=== PATIENT | female | born 1945 | race Caucasian/White ===

== ENCOUNTER 2017-06-16 10:00 | Inpatient (IN) ==
[2017-06-16 13:02] LABS: Appearance,Urine CLEAR; Bilirubin,Urine NEG (NEG); Color,Urine YELLOW; Glucose,Urine (UA) NEGATIVE (NEG); Leukocyte Esterase,Urine NEG /uL (NEG); Protein,Urine NEG (NEG); Specific Gravity,Urine 1.013 (1.000-1.035); Urine Blood 0.03 mg/dL (<0.03); Urobilinogen,Urine NEG (NEG)
[2017-06-16 13:47] LABS: Basophils # (Auto) 0 K/mcL (0.0-0.3); Basophils % (Auto) 0.4 % (0.0-2.0); Eosinophils # (Auto) 0.3 K/mcL (0.0-0.7); Eosinophils % (Auto) 3.3 % (0.0-7.0); Granulocytes % (Auto) 63.2 % (38.0-78.0); Lymphocytes # (Auto) 1.9 K/mcL (1.5-4.8); Lymphocytes % (Auto) 24.9 % (15.5-49.0); Mean Cell Volume 88.7 fL (80.0-100.0); Mean Corpuscular HGB Conc 34.2 g/dL (31.0-36.0); Mean Corpuscular Hemoglobin 30.3 pg (26.0-34.0); Monocytes # (Auto) 0.6 K/mcL (0.1-0.9); Monocytes % (Auto) 8.2 % (1.0-12.0); Platelet Count 390 K/mcL (140-440); RBC 4.56 M/mcL (4.00-5.20)
[2017-06-16 14:02] LABS: Blood Urea Nitrogen 16 mg/dl (8-23)
[2017-06-16 14:53] LABS: Bacteria,Urine 0 /hpf (0); Urine RBC 0 /hpf (0-1); Urine Squamous Epithelial Cell 0 /hpf (0-4); Urine WBC 0 /hpf (0-4)
[2017-06-22] MEDS ORDERED: PREGABALIN 75 MG CAPSULE PO SCH (06:00)
[2017-06-22] MEDS ORDERED: oxyCODONE 10 MG TAB.ER.12H PO SCH (06:00)
[2017-06-22] MEDS ORDERED: KETOROLAC 30 MG, ROPIVACAINE HCL/PF 49.5 ML, EPINEPHrine 0.5 MG, 0.9 % SODIUM CHLORIDE ... IJ ONE (07:00)
[2017-06-22] MEDS ORDERED: CLINDAMYCIN 600 MG in DEXTROSE 5% IN WATER 50 ML IV SCH (09:00)
[2017-06-22] MEDS: CELECOXIB 200 MG CAPSULE PO SCH (10:49)
[2017-06-22] MEDS ORDERED: MIDAZOLAM 5 MG/5 ML VIAL ONE (12:57)
[2017-06-22] MEDS ORDERED: PROPOFOL 200 MG/20 ML VIAL IV ONE (12:57)
[2017-06-22] MEDS ORDERED: DEXAMETHASONE 10 MG/ML VIAL ONE (12:57)
[2017-06-22] MEDS ORDERED: LIDOCAINE HCL/PF 100 MG/5 ML SYRINGE IV ONE (12:57)
[2017-06-22] MEDS ORDERED: PHENYLEPHRINE 10 MG/ML VIAL ONE (12:57)
[2017-06-22] MEDS ORDERED: GLYCOPYRROLATE 0.2 MG/ML VIAL IV ONE (12:57)
[2017-06-22] MEDS ORDERED: ONDANSETRON 4 MG/2 ML VIAL ONE (12:57)
[2017-06-22] MEDS ORDERED: ONDANSETRON 4 MG/2 ML VIAL IV PRN ×2 (14:04→15:02)
[2017-06-22] MEDS ORDERED: diphenhydrAMINE 50 MG/ML VIAL IV PRN (14:04)
[2017-06-22] MEDS ORDERED: ATROPINE SULFATE 0.4 MG/ML VIAL IV PRN (14:04)
[2017-06-22] MEDS ORDERED: FLUMAZENIL 0.1 MG/ML ML IV PRN (14:04)
[2017-06-22] MEDS ORDERED: ePHEDrine 50 MG/ML AMPUL IV PRN (14:04)
[2017-06-22] MEDS ORDERED: NALOXONE HCL 0.4 MG/ML VIAL IV PRN (14:04)
[2017-06-22] MEDS ORDERED: IPRATROPIUM/ALBUTEROL 3 ML AMPUL.NEB NEB PRN (14:04)
[2017-06-22] MEDS ORDERED: fentaNYL 100 MCG/2 ML VIAL IV PRN (14:04)
[2017-06-22] MEDS ORDERED: MEPERIDINE 25 MG/ML SYRINGE IV PRN (14:04)
[2017-06-22] MEDS ORDERED: METHOCARBAMOL 1,000 MG/10 ML VIAL IV PRN (14:04)
[2017-06-22] MEDS ORDERED: PROMETHAZINE 25 MG/ML VIAL IV PRN (14:04)
[2017-06-22] MEDS ORDERED: METOPROLOL TARTRATE 5 MG/5 ML VIAL IV PRN (14:04)
[2017-06-22] MEDS ORDERED: HYDROmorphone 2 MG/ML VIAL IV PRN (14:04)
[2017-06-22] MEDS ORDERED: LACTATED RINGERS 1,000 ML IV SCH (14:15)
[2017-06-22] MEDS ORDERED: ACETAMINOPHEN 1,000 MG/100 ML BOTTLE IV SCH (14:15)
[2017-06-22] MEDS ORDERED: GENTAMICIN SULFATE 800 MG/20 ML VIAL IR ONE (14:50)
[2017-06-22] MEDS ORDERED: HYDROcodone/APAP 10/325MG TABLET PO PRN (15:02)
[2017-06-22] MEDS ORDERED: ACETAMINOPHEN 325 MG TABLET PO PRN (15:02)
[2017-06-22] MEDS ORDERED: METHOCARBAMOL 750 MG TABLET PO PRN (15:02)
[2017-06-22] MEDS ORDERED: ONDANSETRON ODT 4 MG TABLET SL PRN (15:02)
[2017-06-22] MEDS ORDERED: FLEETS ADULT ENEMA PR PRN (15:02)
[2017-06-22] MEDS ORDERED: POLYETHYLENE GLYCOL 3350 17 GM PACKET PO PRN (15:02)
[2017-06-22] MEDS ORDERED: BENZOCAINE/MENTHOL 1 LOZENGE PO PRN (15:02)
[2017-06-22] MEDS ORDERED: TRANEXAMIC ACID 1,000 MG/10 ML VIAL IV ONE (15:02)
[2017-06-22] MEDS ORDERED: BISACODYL 10 MG SUPP.RECT PR PRN (15:02)
[2017-06-22] MEDS ORDERED: MAGNESIUM HYDROXIDE 30 ML ORAL.SUSP PO PRN (15:02)
--- NOTE | 2017-06-22 15:02 | Brief Operative Note ---
Date of procedure: 06/22/17 Pre-op diagnosis: right knee oa Post-op diagnosis: same Procedure: right total knee arthroplasty Grafts/Implants: Yes Anesthesia: spinal Complications: none Surgeon: Daniel Johnson Technician Support Association: Anuradha Levy Estimated blood loss (cc): 150 Tourniquet Time (Minutes): 83 Specimens Removed/Pathology: none sent Condition: stable Disposition: PACU
[2017-06-22] MEDS ORDERED: ACETAMINOPHEN 500 MG TABLET PO PRN (15:05)
--- NOTE | 2017-06-22 15:34 | Operative Note ---
DATE OF OPERATION: 06/22/2017 PREOPERATIVE DIAGNOSIS: Degenerative joint disease, right knee. POSTOPERATIVE DIAGNOSIS: Degenerative joint disease, right knee. PROCEDURE: Right total knee arthroplasty. SURGEON: Baltazar Johnson M.D. AIR SUPPORT CONTROL OFFICER SURGEON: Anuradha Levy PA-C. ANESTHESIA: Spinal with LMA assist. ESTIMATED BLOOD LOSS: 150 mL. COMPLICATIONS: None noted. SPECIMENS REMOVED: None. DRAINS: None. TOURNIQUET TIME: 123 minutes at 300 mmHg. IMPLANTS: DePuy Attune Revision cemented stem, 14 x 50; DePuy Attune femoral posterior stabilized, size 7 right, cemented; DePuy Attune tibial insert fixed bearing posterior stabilized, size 7, 6 mm AOX; DePuy Attune Revision tibial base fixed bearing, size 5 cemented; DePuy Attune patella medialized dome, 35 mm cemented AOX. INDICATIONS: The patient has had a long-standing history of worsening pain in the knee that has failed conservative treatment. Radiographs have confirmed advanced degenerative joint disease. After a long discussion about treatment options, the patient elected to proceed with a knee arthroplasty. The risks and benefits were discussed with the patient in detail including, but not limited to, the risks of anesthesia, problems with the heart or lungs related to anesthesia, infection, compromise or injury to the nerves and blood vessels, deep venous thrombosis, pulmonary embolism, pneumonia, continued pain after surgery, worsening pain or symptoms after surgery, swelling, loss of motion, instability, leg length discrepancy, and need for repeat surgery. DESCRIPTION OF PROCEDURE: The patient was seen in the pre-anesthesia waiting room where all questions were answered and the correct side and site were identified and marked. The patient was transferred to the operating room and administered the anesthetic and given pre-operative antibiotics. A time-out was then called. The extremity was prepped and draped, exsanguinated, and the tourniquet was inflated to 300 mmHg. A midline skin incision was then made with a standard medial parapatellar arthrotomy. Debridement of the menisci, ACL, and PCL was performed followed by balancing releases in the medial lateral plane. We then established intramedullary access to both the femur and tibia in a standard fashion. The femoral guide velia was initially placed with the distal femoral guide, pinned into place, and the distal femoral cut was performed and checked with a flat plate. We then turned our attention to the tibia. The intramedullary guide was placed with the proximal tibial cutting block. The block was appropriately positioned off the affected side, varus and valgus was checked with the extra-medullary guide, and the block was pinned into place. The proximal tibial cut was performed and the tibia was prepared for the tibial implant with appropriate rotation. We used a revision baseplate due to the significant wear along the medial side. Once the tibial cut was performed, there was only about 2-3 mm in the far posterior lateral corner, so I did not feel that we need to augment. I did place a stem, and we drilled out the sclerotic portion in the posterior medial tibial plateau. The tibia, femur, and posterior compartment were debrided of osteophytes, loose bodies, and meniscal fragments We then used the gap balancing technique to balance extension with the first two cuts and good balancing was obtained with a 10 millimeter gap block. We turned our attention back to the femur and used the referencing block and implant to size appropriately. Using the gap balancing technique for the flexion space we set our rotation of the femur off the tibial cut. Anesthesia gave the patient 1 gram of Tranexamic Acid via an intravenous route. We placed the 4 in 1 cutting block and made anterior, posterior, and chamfer cuts. Box plasty cuts were then made in a standard fashion for the posterior stabilized prosthesis. We then completed osteophyte release and posterior capsule release from the posterior compartment. Trials were placed and we chose the polyethylene insert thickness that provided the best stability in all planes. With the trials in place, we did a measured resection for a resurfacing patella. We sized the patella and placed the patella trial and performed a lateral facetectomy with the saw and rongeur. Good tracking was obtained. We removed all trials, irrigated and dried all cut surfaces. We cemented the components into place including tibia, femur and patella. We placed a trial liner and held the knee in full extension with the patella compressed while the cement cured. We then removed all excess cement and placed the final polyethylene tibiofemoral component. Irrigation with 3 liters of antibiotic saline was then performed using jet-lavage. We let the tourniquet down and coagulated bleeding vessels. We injected a 100 cubic centimeter volume including Ropivacaine 49.25 cubic centimeters at 5 milligrams per cubic centimeter, Ketorolac 30 milligrams, and Epinephrine 0.5 milligrams into 100 cubic centimeters volume of normal saline. We closed the retinaculum with #2 Stratafix and 0 Vicryl. We closed the subcutaneous tissue and skin in layers out to Dermabond in the skin. A sterile pressure dressing was applied. All needle and sponge counts were correct. The patient was transferred to the recovery room in stable condition. [email or web address]:soy Job ID: [id number] Doc ID: [id number] Baltazar Johnson MD
--- NOTE | 2017-06-22 16:11 | XRay Report ---
CLINICAL INFORMATION: Reason for Exam:Post-Op Total Knee COMPARISON: None. FINDINGS: Total knee prostheses is anatomically aligned. No osseous abnormality. Periarticular gas soft tissue swelling seen IMPRESSION: Negative Interpreted and Authenticated by: Daniel Vera 06/22/17
[2017-06-22] MEDS: 0.9 % SODIUM CHLORIDE 1,000 ML IV SCH ×2 (16:43→21:59)
[2017-06-22] MEDS: KETOROLAC 30 MG/ML VIAL IV SCH ×2 (17:33→23:36)
[2017-06-22] MEDS: CLINDAMYCIN 600 MG in DEXTROSE 5% IN WATER 50 ML IV SCH (20:10)
[2017-06-22] MEDS: ASPIRIN 325 MG ENTERIC COATED TABLET PO SCH (20:13)
[2017-06-22] MEDS: DOCUSATE SODIUM 100 MG CAPSULE PO SCH (20:13)
[2017-06-22] MEDS: 0.9 % SODIUM CHLORIDE 10 ML SYRINGE IV SCH (20:17)
[2017-06-22] MEDS ORDERED: SENNOSIDES 1 TABLET PO SCH (21:00)
[2017-06-22] MEDS ORDERED: VERAPAMIL 120 MG TAB.XL.24H PO SCH (21:00)
[2017-06-23] MEDS: 0.9 % SODIUM CHLORIDE 10 ML SYRINGE IV SCH (05:07)
[2017-06-23] MEDS: CLINDAMYCIN 600 MG in DEXTROSE 5% IN WATER 50 ML IV SCH (05:07)
[2017-06-23] MEDS: KETOROLAC 30 MG/ML VIAL IV SCH (05:51)
[2017-06-23] MEDS ORDERED: PANTOPRAZOLE 40 MG TABLET PO SCH (07:30)
--- NOTE | 2017-06-23 07:39 | Orthopedic Progress Note ---
Subjective Patient information: Note initiated : 06/23/17 at 7:37 am Service Date, if different from initiated Date: [] Patient: Denise Hairston 72 y/o F admitted on 06/22/17 for Right Total Knee Arthroplasty. Chief Complaint: [] Interval history: doing well no complaints Objective Vital signs: Vital Signs Temp Pulse Resp BP Pulse Ox 06/23/17 03:46 98.6 F 86 12 103/65 95 06/23/17 00:00 98.7 F 90 12 110/72 95 06/22/17 19:04 98.2 F 76 12 124/78 99 06/22/17 18:49 87 146/89 99 06/22/17 18:35 86 150/87 99 06/22/17 18:19 72 124/79 99 06/22/17 18:04 77 133/82 98 06/22/17 17:49 81 143/88 98 06/22/17 17:34 130/83 100 06/22/17 17:19 130/84 98 06/22/17 17:04 139/87 99 06/22/17 16:49 152/92 99 06/22/17 16:34 153/93 99 06/22/17 16:20 83 15 150/98 06/22/17 16:14 83 15 132/80 98 06/22/17 15:50 80 14 152/82 98 06/22/17 15:45 82 17 129/84 98 06/22/17 15:40 80 15 129/84 99 06/22/17 15:35 82 14 129/73 99 06/22/17 15:30 79 14 131/77 99 06/22/17 15:25 83 15 134/78 99 06/22/17 15:20 97.0 F 85 16 117/66 99 06/22/17 10:46 98.5 F 16 155/92 96 Intake and Output 06/22/17 06/23/17 06/23/17 21:59 05:59 13:59 Intake Total 1953 360 / 360 Output Total 100 / 100 550 / 550 250 / 250 Balance 1853 1502 / 1502 110 / 110 Intake: IV 1953 902 / 902 Sodium Chloride 0.9% 1,000 ml @ 848 / 848 125 mls/hr IV .Q8H [facility]KO Rx#: [id number] Cleocin 600 mg In Dextrose 5% 54 / 54 54 / 54 in Water 50 ml @ 100 mls/hr IV Q8H [facility]KO Rx#:[id number] Lactated Ringers 1,000 ml @ 20 1800 / 1800 mls/hr IV .Q24H [facility]KO Rx#: [id number] Oral 1150 / 1150 360 / 360 Output: Void Amount 550 / 550 250 / 250 Estimated Blood Loss 100 / 100 Other: Meal jello Percent of Meal Consumed 100% Feeding Ability Independent Weight 146 lb 8 oz Intake & Output: Intake & Output 06/22/17 06/23/17 06/23/17 21:59 05:59 13:59 Intake Total 1953 360 / 360 Output Total 100 / 100 550 / 550 250 / 250 Balance 1853 / 1853 1502 / 1502 110 / 110 Weight 146 lb 8 oz Intake: IV 1953 902 / 902 Sodium Chloride 0.9% 1,000 ml @ 848 / 848 125 mls/hr IV .Q8H MIKO Rx#: [id number] Cleocin 600 mg In Dextrose 5% 54 / 54 54 / 54 in Water 50 ml @ 100 mls/hr IV Q8H [facility]KO Rx#:[id number] Lactated Ringers 1,000 ml @ 20 1800 / 1800 mls/hr IV .Q24H [facility]KO Rx#: [id number] Oral 1150 / 1150 360 / 360 Output: Void Amount 550 / 550 250 / 250 Estimated Blood Loss 100 / 100 Other: Meal jello Percent of Meal Consumed 100% Feeding Ability Independent Incision: Yes healing Incision clean and dry: Yes Dressing: Yes clean, Yes dry, Yes intact Weight bearing status: full Neurological exam IM: Yes alert, Yes normal gait, Yes oriented X3, Yes motor sensory intact, Yes neurovascular intact Extremities exam IM: No calf tenderness, Yes Foot pink and warm, Yes neurovascular intact - Labs CBC & BMP: 06/23/17 04:00 06/16/17 10:25 Labs: Orthopedic Labs 06/16/17 10:25 PT 13.6 INR 1.0 06/23/17 06/16/17 04:00 10:25 Hgb 9.1 L 13.8 Hct 27.0 L 40.5 Assessment and Plan (1) Knee osteoarthritis pod 1 s/p tka wbat pain control dvt prophylaxis d/c planning Status: Acute
--- NOTE | 2017-06-23 07:40 | Discharge Summary ---
Ortho Discharge - TKA - Patient Instructions Diet: Regular Diet Activity: activity as tolerated, weight bearing as tolerated Total Knee Protocol: For Total Knee: Start ROM FADUMO with stationary bike or rocking chair. Work on gaining full extension of knee. Posterior dislocation precautions provided. Hip abductor strengthening and gait training instructions provided. Apply Cryocuff as instructed. Dressing Care: May shower in 2 days Patient Education: Total Knee Replacement, Director Trust (GEN) - Problem Maintenance (1) Knee osteoarthritis Status: Acute - Follow Up Plan Disposition: Home, Self-Care Prognosis: Good Rehab Potential: Good I certify that the patient requires SNF services: No Overall status at discharge: patient is progressing back to baseline
[2017-06-23] MEDS: DOCUSATE SODIUM 100 MG CAPSULE PO SCH (08:54)
[2017-06-23] MEDS: ASPIRIN 325 MG ENTERIC COATED TABLET PO SCH (08:55)
[2017-06-23] MEDS ORDERED: BISOPROLOL 5 MG TABLET PO SCH (09:00)
[2017-06-23] MEDS ORDERED: HYDROCHLOROTHIAZIDE 25 MG TABLET PO SCH (09:00)
[2017-06-23] MEDS ORDERED: CETIRIZINE 10 MG TABLET PO SCH (09:00)
[2017-06-23] MEDS ORDERED: BISOPROLOL FUMARATE PO SCH (09:00)
[2017-06-23] MEDS ORDERED: HCTZ PO SCH (09:00)
[2017-06-23] MEDS ORDERED: [UNRECOGNIZED DRUG - OTHER] PO SCH (09:00)
== END 2017-06-23 09:50 | disposition home or self-care (01) | DRG 470 ==
LOC: ICU 06-22 09:25 → EDSTATUS 06-22 10:30
PROVIDERS: ADMIT Orthopaedic Surgery Sports Medicine; ATTEND Orthopaedic Surgery Sports Medicine

== ENCOUNTER 2019-02-21 07:51 | Inpatient (IN) ==
[2019-02-15 18:09] LABS: Appearance,Urine CLEAR; Bacteria,Urine 0 /hpf (0); Bilirubin,Urine NEG (NEG); Color,Urine STRAW; Culture Indicated,Urine NO; Glucose,Urine (UA) NEGATIVE (NEG); Ketones,Urine NEG (NEG); Leukocyte Esterase,Urine NEG /uL (NEG); Mucus,Urine FEW /hpf (0); Nitrate,Urine NEG (NEG); Protein,Urine NEG (NEG); Specific Gravity,Urine 1.016 (1.000-1.035); Urine Blood 0.2 mg/dL (<0.03); Urine RBC 5 /hpf (0-1); Urine Squamous Epithelial Cell < 1 /hpf (0-4); Urine Transitional Epi Cells < 1 /hpf (0-2); Urine WBC 0 /hpf (0-4); Urobilinogen,Urine NEG (NEG)
[2019-02-15 19:41] LABS: Basophils # (Auto) 0 K/mcL (0.0-0.3); Basophils % (Auto) 0.5 % (0.0-2.0); Eosinophils # (Auto) 0.1 K/mcL (0.0-0.7); Eosinophils % (Auto) 1.4 % (0.0-7.0); Hematocrit 40.6 % (36.0-48.0); Hemoglobin 13.2 g/dL (12.0-15.0); Lymphocytes # (Auto) 1.5 K/mcL (1.5-4.8); Lymphocytes % (Auto) 26.6 % (15.5-49.0); Mean Cell Volume 90.1 fL (80.0-100.0); Mean Corpuscular HGB Conc 32.5 g/dL (31.0-36.0); Mean Platelet Volume 7.6 fL (7.4-10.4); Monocytes # (Auto) 0.4 K/mcL (0.1-0.9); Monocytes % (Auto) 7.5 % (1.0-12.0); Platelet Count 376 K/mcL (140-440); RBC 4.51 M/mcL (4.00-5.20); Red Cell Distribution Width 13.9 % (11.5-14.5); WBC 5.6 K/mcL (4.5-11.0)
[2019-02-15 19:47] LABS: Prothrombin Time 13.2 sec (11.9-14.5)
[2019-02-15 19:52] LABS: Blood Urea Nitrogen 23 mg/dl (8-23); Calcium 9.4 mg/dl (8.6-10.4); Carbon Dioxide 28 mmol/L (22-30); Chloride 103 mmol/L (96-108); Glomerular Filtration Rate 85; Glucose 98 mg/dL (70-105)
[~2019-02-21 07:51] MED LIST: 0.9 % SODIUM CHLORIDE 9 ML, KETOROLAC 30 MG, ROPIVACAINE HCL/PF 49.5 ML, EPINEPHrine 0.... IJ SCH; CELECOXIB 200 MG CAPSULE PO SCH; IPRATROPIUM/ALBUTEROL 3 ML AMPUL.NEB NEB PRN; PREGABALIN 75 MG CAPSULE PO SCH; SCOPOLAMINE 1 PATCH PATCH TOPICAL PRN; VANCOMYCIN 1,000 MG in 0.9 % SODIUM CHLORIDE 250 ML IV SCH; oxyCODONE 10 MG TAB.ER.12H PO SCH
[2019-02-21] MEDS ORDERED: ONDANSETRON 4 MG/2 ML VIAL IV ONE (09:20)
[2019-02-21] MEDS ORDERED: LIDOCAINE HCL/PF 100 MG/5 ML SYRINGE IV ONE (09:20)
[2019-02-21] MEDS ORDERED: PHENYLEPHRINE 10 MG/ML VIAL IV ONE (09:20)
[2019-02-21] MEDS ORDERED: DEXAMETHASONE 10 MG/ML VIAL IV ONE (09:20)
[2019-02-21] MEDS ORDERED: PROPOFOL 200 MG/20 ML VIAL IV ONE (09:20)
[2019-02-21] MEDS ORDERED: GLYCOPYRROLATE 0.2 MG/ML VIAL IV ONE (09:20)
[2019-02-21] MEDS ORDERED: ROPIVACAINE HCL/PF 20 ML VIAL IJ ONE (09:20)
[2019-02-21] MEDS ORDERED: TRANEXAMIC ACID 1,000 MG/10 ML VIAL IV ONE (09:20)
[2019-02-21] MEDS ORDERED: ePHEDrine 50 MG/ML AMPUL IV ONE (09:20)
[2019-02-21] MEDS ORDERED: KETAMINE 100 MG/ML ML IV ONE (09:20)
[2019-02-21] MEDS ORDERED: GENTAMICIN SULFATE 800 MG/20 ML VIAL IR ONE (09:50)
[2019-02-21] MEDS ORDERED: PROMETHAZINE 25 MG/ML VIAL IV PRN (10:16)
[2019-02-21] MEDS ORDERED: IPRATROPIUM/ALBUTEROL 3 ML AMPUL.NEB NEB PRN (10:16)
[2019-02-21] MEDS ORDERED: MEPERIDINE 25 MG/ML SYRINGE IV PRN (10:16)
[2019-02-21] MEDS ORDERED: NALOXONE HCL 0.4 MG/ML VIAL IV PRN (10:16)
[2019-02-21] MEDS ORDERED: diphenhydrAMINE 50 MG/ML VIAL IV PRN (10:16)
[2019-02-21] MEDS ORDERED: LACTATED RINGERS 250 ML IV PRN (10:16)
[2019-02-21] MEDS ORDERED: ACETAMINOPHEN 850 MG/85 ML BOTTLE IV ONE (10:16)
[2019-02-21] MEDS ORDERED: ONDANSETRON 4 MG/2 ML VIAL IV PRN ×2 (10:16→10:56)
[2019-02-21] MEDS ORDERED: fentaNYL 100 MCG/2 ML VIAL IV PRN (10:16)
[2019-02-21] MEDS ORDERED: LACTATED RINGERS 1,000 ML IV SCH (10:30)
--- NOTE | 2019-02-21 10:55 | Brief Operative Note ---
Date of procedure: 02/21/19 Pre-op diagnosis: left knee osteoarthritis Post-op diagnosis: same Procedure: left total knee arthroplasty Grafts/Implants: Yes Anesthesia: spinal Complications: none Surgeon: Daniel Johnson Mirror Painter: Anuradha Levy Estimated blood loss (cc): 150 Tourniquet Time (Minutes): 60 Specimens Removed/Pathology: none sent Condition: stable Disposition: PACU
[2019-02-21] MEDS ORDERED: ONDANSETRON 4 MG ODT TABLET SL PRN (10:56)
[2019-02-21] MEDS ORDERED: BISACODYL 10 MG SUPP.RECT PR PRN (10:56)
[2019-02-21] MEDS ORDERED: FLEETS ADULT ENEMA PR PRN (10:56)
[2019-02-21] MEDS ORDERED: MAGNESIUM HYDROXIDE 30 ML ORAL.SUSP PO PRN (10:56)
[2019-02-21] MEDS ORDERED: TRANEXAMIC ACID 1,000 MG/10 ML VIAL IV SCH (10:56)
[2019-02-21] MEDS ORDERED: METHOCARBAMOL 750 MG TABLET PO PRN (10:56)
[2019-02-21] MEDS ORDERED: BENZOCAINE/MENTHOL 1 LOZENGE PO PRN (10:56)
[2019-02-21] MEDS ORDERED: POLYETHYLENE GLYCOL 3350 17 GM PACKET PO PRN (10:56)
--- NOTE | 2019-02-21 10:56 | Discharge Summary ---
Ortho Discharge - TKA - Patient Instructions Diet: Regular Diet Activity: ambulate with assistive device, weight bearing as tolerated Total Knee Protocol: For Total Knee: Start ROM FADUMO with stationary bike or rocking chair. Work on gaining full extension of knee. Posterior dislocation precautions provided. Hip abductor strengthening and gait training instructions provided. Apply Cryocuff as instructed. Dressing Care: May shower in 2 days - Follow Up Plan Disposition: Home, Self-Care Prognosis: Good Rehab Potential: Good I certify that the patient requires SNF services: No Overall status at discharge: patient is progressing back to baseline
--- NOTE | 2019-02-21 11:19 | Operative Note ---
DATE OF OPERATION: 02/21/2019 PREOPERATIVE DIAGNOSIS: Degenerative joint disease, left knee. POSTOPERATIVE DIAGNOSIS: Degenerative joint disease, left knee. PROCEDURE: Left total knee arthroplasty. SURGEON: Baltazar Johnson M.D. COMMERCIAL REPRESENTATIVE SURGEON: Anuradha Levy PA-C. This provider's expertise and technical skill were required throughout the case. The PA assisted with preoperative coordination, intraoperative retraction, wound closure, dressing and splint application, as well as postoperative documentation and care coordination. ANESTHESIA: Spinal with LMA assist. ESTIMATED BLOOD LOSS: 150 mL COMPLICATIONS: None noted. SPECIMENS REMOVED: None. DRAINS: None. TOURNIQUET TIME: 60 minutes at 300 mmHg. IMPLANTS: DePuy CMW2 bone cement 20 grams x5, DePuy Attune patella medialized dome 38 mm cemented AOX, DePuy Attune tibial insert fixed bearing posterior stabilized 7 and 8 mm AOX, DePuy Attune femoral posterior stabilized size 7 left cemented, DePuy Attune knee system tibial based fixed bearing size 5 cemented. INDICATIONS: The patient has had a long-standing history of worsening pain in the knee that has failed conservative treatment. Radiographs have confirmed advanced degenerative joint disease. After a long discussion about treatment options, the patient elected to proceed with a knee arthroplasty. The risks and benefits were discussed with the patient in detail including, but not limited to, the risks of anesthesia, problems with the heart or lungs related to anesthesia, infection, compromise or injury to the nerves and blood vessels, deep venous thrombosis, pulmonary embolism, pneumonia, continued pain after surgery, worsening pain or symptoms after surgery, swelling, loss of motion, instability, leg length discrepancy, and need for repeat surgery. DESCRIPTION OF PROCEDURE: The patient was seen in the pre-anesthesia waiting room where all questions were answered and the correct side and site were identified and marked. The patient was transferred to the operating room and administered the anesthetic and given pre-operative antibiotics. A time-out was then called. The extremity was prepped and draped, exsanguinated, and the tourniquet was inflated to 300 mmHg. A midline skin incision was then made with a standard medial parapatellar arthrotomy. Debridement of the menisci, ACL, and PCL was performed followed by balancing releases in the medial lateral plane. We then established intramedullary access to both the femur and tibia in a standard fashion. The femoral guide velia was initially placed with the distal femoral guide, pinned into place, and the distal femoral cut was performed and checked with a flat plate. We then turned our attention to the tibia. The intramedullary guide was placed with the proximal tibial cutting block. The block was appropriately positioned off the affected side, varus and valgus was checked with the extra-medullary guide, and the block was pinned into place. The proximal tibial cut was performed and the tibia was prepared for the tibial implant with appropriate rotation. The tibia, femur, and posterior compartment were debrided of osteophytes, loose bodies, and meniscal fragments We then used the gap balancing technique to balance extension with the first two cuts and good balancing was obtained with a 10 millimeter gap block. We turned our attention back to the femur and used the referencing block and implant to size appropriately. Using the gap balancing technique for the flexion space we set our rotation of the femur off the tibial cut. Anesthesia gave the patient 1 gram of Tranexamic Acid via an intravenous route. We placed the 4 in 1 cutting block and made anterior, posterior, and chamfer cuts. Box plasty cuts were then made in a standard fashion for the posterior stabilized prosthesis. We then completed osteophyte release and posterior capsule release from the posterior compartment. Trials were placed and we chose the polyethylene insert thickness that provided the best stability in all planes. With the trials in place, we did a measured resection for a resurfacing patella. We sized the patella and placed the patella trial and performed a lateral facetectomy with the saw and rongeur. Good tracking was obtained. We removed all trials, irrigated and dried all cut surfaces. We cemented the components into place including tibia, femur and patella. We placed a trial liner and held the knee in full extension with the patella compressed while the cement cured. We then removed all excess cement and placed the final polyethylene tibiofemoral component. Irrigation with 3 liters of antibiotic saline was then performed using jet-lavage. We let the tourniquet down and coagulated bleeding vessels. We injected a 100 cubic centimeter volume including Ropivacaine 49.25 cubic centimeters at 5 milligrams per cubic centimeter, Ketorolac 30 milligrams, and Epinephrine 0.5 milligrams into 100 cubic centimeters volume of normal saline. We closed the retinaculum with #2 Stratafix and 0 Vicryl. We closed the subcutaneous tissue and skin in layers out to Dermabond on the skin. A sterile pressure dressing was applied. All needle and sponge counts were correct. The patient was transferred to the recovery room in stable condition. [email or web address]:patrick Job ID: [id number] Doc ID: [id number] Baltazar Johnson MD
--- NOTE | 2019-02-21 11:54 | XRay Report ---
CLINICAL INFORMATION: Post-Op Total Knee COMPARISON: None. FINDINGS: Total knee prostheses is anatomically aligned. No osseous abnormality. Periarticular soft tissue swelling seen as expected IMPRESSION: Negative Interpreted and Authenticated by: Daniel Vera 02/21/19
[2019-02-21] MEDS: LACTATED RINGERS 1,000 ML IV SCH ×2 (12:11→22:04)
[2019-02-21] MEDS: KETOROLAC 15 MG/ML VIAL IV SCH ×2 (12:14→17:15)
[2019-02-21] MEDS: 0.9 % SODIUM CHLORIDE 10 ML SYRINGE IV SCH ×2 (12:14→23:08)
[2019-02-21] MEDS ORDERED: SENNOSIDES 1 TABLET PO SCH (21:00)
[2019-02-21] MEDS ORDERED: VANCOMYCIN 1,000 MG in 0.9 % SODIUM CHLORIDE 250 ML IV SCH (21:00)
[2019-02-21] MEDS: HYDROcodone/APAP 10/325MG TABLET PO PRN (22:03)
[2019-02-21] MEDS: ASPIRIN 81 MG TAB.CHEW PO SCH (22:04)
[2019-02-21] MEDS: DOCUSATE SODIUM 100 MG CAPSULE PO SCH (22:05)
[2019-02-22] MEDS: KETOROLAC 15 MG/ML VIAL IV SCH ×2 (00:20→05:38)
[2019-02-22] MEDS: LACTATED RINGERS 1,000 ML IV SCH (01:46)
[2019-02-22] MEDS: HYDROcodone/APAP 10/325MG TABLET PO PRN (04:44)
[2019-02-22] MEDS: 0.9 % SODIUM CHLORIDE 10 ML SYRINGE IV SCH (05:38)
[2019-02-22 07:13] LABS: Hematocrit 32.1 % (36.0-48.0); Hemoglobin 10.6 g/dL (12.0-15.0)
--- NOTE | 2019-02-22 07:54 | Orthopedic Progress Note ---
Subjective Patient information: Note initiated : 02/22/19 at 7:53 am Service Date, if different from initiated Date: [] Patient: Denise Hairston 74 y/o F admitted on 02/21/19 for Left Total Knee Arthroplasty. Chief Complaint: [] Interval history: doing well. no complaints Objective Vital signs: Vital Signs Temp Pulse Resp BP BP Pulse Ox 02/22/19 04:39 97.4 F 73 14 123/63 94 02/21/19 23:22 97.5 F 79 14 102/59 92 02/21/19 20:01 97.1 F 74 14 143/84 95 02/21/19 14:00 97.4 F 71 18 122/75 91 02/21/19 13:20 73 18 120/73 94 02/21/19 12:55 72 18 111/68 94 02/21/19 12:40 70 18 112/71 91 02/21/19 12:25 80 18 110/68 97 02/21/19 12:10 75 18 123/76 95 02/21/19 11:55 97.1 F 79 16 111/71 96 02/21/19 11:45 109/61 02/21/19 11:40 96.8 F L 83 19 99/67 94 02/21/19 11:25 97.5 F 71 8 L 90/49 100 02/21/19 11:20 74 8 L 84/47 99 02/21/19 11:15 74 8 L 82/45 98 02/21/19 11:10 97.5 F 98 H 8 L 84/46 98 Intake and Output 02/21/19 02/22/19 02/22/19 21:59 05:59 13:59 Intake Total 1800 1454 Output Total 2500 1000 Balance -700 454 Intake: IV 1000 554 Lactated Ringers 1,000 ml @ 125 1000 304 mls/hr IV .Q8H [facility]KO Rx#: [id number] Vancomycin 1,000 mg In Sodium 250 Chloride 0.9% 250 ml @ 250 mls/ hr IV ONCE MIKO Rx#:[id number] Oral 800 900 Output: Void Amount 2500 1000 Other: Urine Appearance Clear Clear Urine Color Bright Yellow Pale Urine Odor Normal Normal # Voids 1 Weight 136 lb 8 oz Intake & Output: Intake & Output 02/21/19 02/22/19 02/22/19 21:59 05:59 13:59 Intake Total 1800 1454 Output Total 2500 1000 Balance -700 454 Weight 136 lb 8 oz Intake: IV 1000 554 Lactated Ringers 1,000 ml @ 125 1000 304 mls/hr IV .Q8H [facility]KO Rx#: [id number] Vancomycin 1,000 mg In Sodium 250 Chloride 0.9% 250 ml @ 250 mls/ hr IV ONCE [facility]KO Rx#:[id number] Oral 800 900 Output: Void Amount 2500 1000 Other: Urine Appearance Clear Clear Urine Color Bright Yellow Pale Urine Odor Normal Normal # Voids 1 Incision: Yes healing Incision clean and dry: Yes Dressing: Yes clean, Yes dry, Yes intact Weight bearing status: full Neurological exam IM: Yes abnormal gait, Yes alert, Yes oriented X3, Yes motor sensory intact, Yes neurovascular intact Extremities exam IM: No calf tenderness, Yes Foot pink and warm, Yes neurovas cular intact - Labs CBC & BMP: 02/22/19 05:11 02/15/19 15:36 Labs: Orthopedic Labs 02/15/19 15:37 PT 13.2 INR 1.0 02/22/19 02/15/19 05:11 15:37 Hgb 10.6 L 13.2 Hct 32.1 L 40.6 Assessment and Plan (1) Knee osteoarthritis pod 1 s/p tka pain control pt dvt prophylaxis d/c planning home when comfortable and passes pt Status: Acute
[2019-02-22] MEDS: DOCUSATE SODIUM 100 MG CAPSULE PO SCH (08:50)
[2019-02-22] MEDS: ASPIRIN 81 MG TAB.CHEW PO SCH (08:51)
[2019-02-22] MEDS ORDERED: BISOPROLOL 5 MG TABLET PO SCH (09:00)
[2019-02-22] MEDS ORDERED: HYDROCHLOROTHIAZIDE 25 MG TABLET PO SCH (09:00)
[2019-02-22] MEDS ORDERED: VERAPAMIL 120 MG TAB.XL.24H PO SCH (09:00)
[2019-02-22] MEDS ORDERED: FLU VACC QS2019-20(6MOS UP)/PF 60 MCG/0.5 ML SYRINGE IM ONE (10:00)
== END 2019-02-22 10:40 | disposition home or self-care (01) | DRG 470 ==
LOC: MEDSUR 07:51
PROVIDERS: ADMIT Orthopaedic Surgery Sports Medicine; ATTEND Orthopaedic Surgery Sports Medicine

== ENCOUNTER 2022-05-15 19:04 | Inpatient (IN) ==
--- NOTE | 2022-05-15 19:38 | Emergency Department Note ---
HPI General Chief complaint: Extremity Injury, Lower Stated complaint: known left femur fracture Time Seen by Provider: 05/15/22 19:29 Source: patient and family Mode of arrival: EMS Limitations: no limitations History of Present Illness HPI Narrative: Narrative: 77-year-old female presents the emergency department with right and left hip pain and unable to walk. History from the patient she actually back in February had a total right hip with arthroplasty done with Dr. Elizabeth alaniz at [facility]. The surgery went well but unfortunately which she was admitted afterwards within 12 hours she had a stroke that was missed. They are unable to give any tPA. She then went to a rehab center was doing well for the rehab and what got home actually a couple weeks ago. 2 weeks ago while at home she actually had a fall where she missed the last step and broke her left hip. This was then repaired by orthopedic surgery. She was then discharged back home. They noticed that she was still having pain and possibly had another fall the really unsure but she was actually seen here 2 days ago they did a repeat CT scan of her hips as both hips were hurting. Apparently the direct radiology report did not show any hip fractures there is over the chronic findings so they ended up sending her home with home health to help with her she did not meet any admission criteria and they were unable to get patient placed in any nursing homes. Dr. Jn Bell actually read it but it was not relayed to the ER team that the patient actually had a comminuted right-sided hip fracture from the arthroplasty. The primary care doctor noticed it today and called to let me know and said there is an the patient in for continued pain and possibly needing intermediate placement as patient is unable to walk on her own now with his continued hip pain. There is been no new falls. No other complaints otherwise Related Data Home Medications Medication Instructions Recorded Confirmed cetirizine 10 mg tablet 10 mg PO DAILY 06/16/17 11/04/21 verapamil 120 mg 24 hr 120 mg PO DAILY 02/21/19 11/04/21 capsule,extended release bisoprolol 2.5 1 tab PO QDAY 10/14/21 11/04/21 mg-hydrochlorothiazide 6.25 mg tablet celecoxib 200 mg capsule 200 mg PO BID 10/14/21 11/04/21 conjugated estrogens 0.625 mg/gram 500 mg vaginal 10/14/21 11/04/21 vaginal cream (Premarin) esomeprazole magnesium 20 mg 20 mg PO QDAY 10/14/21 11/04/21 capsule,delayed release Previous Rx's Medication Instructions Recorded aspirin 81 mg tablet,delayed 81 mg PO BID ##30 02/21/19 release hydrocodone 10 mg-acetaminophen 1 - 2 tab PO Q4H PRN Pain #60 tabs 02/21/19 325 mg tablet pregabalin 50 mg capsule 50 mg PO TID PRN pain #90 caps 12/15/21 hydrocodone 5 mg-acetaminophen 325 1 tab PO Q4H PRN pain #14 tabs 05/13/22 mg tablet Allergies Allergy/AdvReac Type Severity Reaction Status Date / Time Amoxicillin Allergy Mild Rash Verified 05/15/22 19:04 cephalexin [From Keflex] Allergy Mild Rash Verified 05/15/22 19:04 dust/hay Allergy Unknown Unknown Uncoded 03/04/22 12:31 Review of Systems ROS ROS Narrative: Narrative: All systems ED: reviewed and negative except as stated. [facility] Narrative Patient History Narrative: Narrative: Medical/Surgical/Family History All Active Problems (Updated 05/15/22 @ 19:47 by Umesh Junior DO) Hip pain, left (Acute) Bilateral hip pain (Acute) Closed fracture of greater trochanter of right femur (Acute) Prolapsed uterus (Chronic) Osteoarthritis of right hip (Chronic) Knee osteoarthritis (Chronic) Right hip pain (Chronic) Right leg pain (Chronic) Chronic pain (Chronic) Radiculopathy, lumbar region (Chronic) Age-related osteoporosis without current pathological fracture (Chronic) Osteoporosis (Chronic) GERD (gastroesophageal reflux disease) (Chronic) Right sided sciatica (Chronic) Hip fracture, intertrochanteric (Chronic) Pre-op evaluation (Chronic) Hypertension (Chronic) Medical History Age-related osteoporosis without current pathological fracture Chronic pain GERD (gastroesophageal reflux disease) Hip fracture, intertrochanteric Hypertension Knee osteoarthritis Osteoarthritis of right hip Osteoporosis Pre-op evaluation Prolapsed uterus Radiculopathy, lumbar region Right hip pain Right leg pain Right sided sciatica Surgical History History of hip surgery (~2018) Right hip fracture History of hip surgery (~2019) Left hip pinned History of tonsillectomy History of total left knee replacement (~2019) History of total right knee replacement (~2019) Family History Mother Alcohol abuse Father High blood pressure Heart disease Brother Alcohol abuse Sister Alcohol abuse Social History Smoking Status: Never smoker Alcohol Intake Frequency: does not drink Substance Use: does not use Exam Narrative Narrative: Narrative: Vital signs noted General: Awake. Alert. No distress. Skin: Warm. Dry. No rash. HEENT: NCAT. PERRL. EOMI. No conjunctivitis. Membranes moist. Neck: Good ROM. No meningeal signs. No stridor. Cardiovascular: RRR. Respiratory: No respiratory distress. Gastrointestinal: Abdomen soft. No tenderness. No distention. Back: No deformity. No CVAT. Musculoskeletal: Bilateral hip pain with palpation of both sides. But otherwise work well and decreased range of motion on the right and left side secondary to pain no tenderness. No swelling. No erythema. No edema. Good peripheral pulses x 4 Neurological: No focal neurological deficits observed. General Limitations: no limitations Course Vital Signs Vital signs: Vital Signs Temperature 97.4 F 05/15/22 19:04 Pulse Rate 74 05/15/22 19:04 Respiratory Rate 16 05/15/22 19:04 Pulse Oximetry (%) 99 05/15/22 19:04 Oxygen Delivery Method Room Air 05/15/22 19:04 Temperature 97.4 F 05/15/22 19:04 Pulse Rate 74 05/15/22 19:04 Respiratory Rate 16 05/15/22 19:04 Pulse Oximetry (%) 99 05/15/22 19:04 Oxygen Delivery Method Room Air 05/15/22 19:04 [facility] MDM Narrative Medical decision making narrative: Narrative: There is been no new falls or trauma. I did personally review the CTs as well as the operative reports that were done previously. I did review the CAT scan which showed a transverse mildly comminuted fracture through the right greater trochanteric base with mild displacement. Otherwise chronic findings no other acute findings. I did call and speak with Dr. Su and explained to him the case was the orthopedic surgeon on-call he said this is nonsurgical and patient can be weightbearing up to what ever she can handle due to pain but probably will be nonweightbearing due to pain control. Patient was brought here via EMS to get history from EMS as well as family. She is definitely a little bit not as with this secondary to her stroke but there is been no changes in the stroke symptoms. There is no further imaging or lab analysis that needs to get done we will go ahead and admit the patient for pain control for her right hip fracture that does not need surgical repair. I spoke with Dr. Gaming who has agreed to admit the patient to the medical surgical service. Discharge Plan Patient/Caregiver Discharge Instructions Pt seen by LEATHER CURRIER/PA only: No Clinical Impression: Closed fracture of greater trochanter of right femur Activity: increase activity as tolerated Patient Disposition: Xfer As Inpt ([facility]) Condition: Fair Follow up with: No,PCP [Primary Care Provider] - Prescriptions: No Action pregabalin 50 mg capsule 50 mg PO TID PRN (Reason: pain) Qty: 90 0RF Premarin 0.625 mg/gram cream 500 mg vaginal esomeprazole magnesium 20 mg capsule,delayed release(DR/EC) 20 mg PO QDAY bisoprolol-hydrochlorothiazide 2.5-6.25 mg tablet 1 tab PO QDAY celecoxib 200 mg capsule 200 mg PO BID cetirizine 10 MG tablet 10 mg PO DAILY verapamil 120 MG capsule,ext rel. pellets 24 hr 120 mg PO DAILY hydrocodone-acetaminophen 1 TAB tablet 1 - 2 tab PO Q4H PRN (Reason: Pain) Qty: 60 0RF aspirin 81 MG tablet,delayed release (DR/EC) 81 mg PO BID Qty: 30 0RF hydrocodone-acetaminophen 5-325 mg tablet 1 tab PO Q4H PRN (Reason: pain) Qty: 14 0RF
--- NOTE | 2022-05-15 19:38 | Internal Med History&Physical ---
HPI History of Present Illness Patient information: Note initiated : 05/15/22 at 7:37 pm Service Date, if different from initiated Date: [] Patient: Denise Hairston 77 y/o F admitted on for known left femur fracture. Chief Complaint: [] History of present illness: Ms. Hairston is a 77-year-old female with a history of osteoporosis, stroke, history of right and left hip replacements presented to the emergency department with severe right hip pain and inability to walk. The patient presented to the ED on 05/13/2022 for the same symptoms, imaging including a CT pelvis showed a transverse mildly comminuted fracture to the right greater trochanteric base with mild displacement. [facility] and the patient was discharged to home however when the images were reviewed by staff radiologist the fracture was documented. This was later discovered when the patient's pain did not resolve. Orthopedic surgery evaluated the CT scan and determined the fracture was nonoperative. Hospital medicine was asked to admit the patient for pain management, physical therapy and supportive cares. Review of systems Constitutional: no fever, fatigue, or weight loss Eyes: no vision changes or pain Cardiovascular: no chest pain, no palpitations Respiratory: no cough or dyspnea Gastrointestinal: no abdominal pain, no nausea, vomiting, or diarrhea Genitourinary: no dysuria or difficulty voiding Musculoskeletal: Positive for right hip pain with movement. Integumentary: no skin lesion or wound Neurological: no focal weakness or numbness Psychiatric: no anxiety or depression Physical exam Head: Atraumatic, normal inspection. Eyes: normal appearance, no scleral icterus. Neck: full ROM Respiratory: no respiratory distress. Cardiovascular: normal rate and rhythm, S1, S2. GI/Abdominal: soft, nontender, no guarding. Extremities: Right hip tenderness. Neurological: CN II-XII intact, modest left-sided upper extremity and lower extremity weakness, intact sensation. Psychiatric: normal mood. Skin: warm, normal color PFSH PFSH All Active Problems (Updated 05/15/22 @ 19:47 by Umesh Junior DO) Hip pain, left (Acute) Bilateral hip pain (Acute) Closed fracture of greater trochanter of right femur (Acute) Prolapsed uterus (Chronic) Osteoarthritis of right hip (Chronic) Knee osteoarthritis (Chronic) Right hip pain (Chronic) Right leg pain (Chronic) Chronic pain (Chronic) Radiculopathy, lumbar region (Chronic) Age-related osteoporosis without current pathological fracture (Chronic) Osteoporosis (Chronic) GERD (gastroesophageal reflux disease) (Chronic) Right sided sciatica (Chronic) Hip fracture, intertrochanteric (Chronic) Pre-op evaluation (Chronic) Hypertension (Chronic) Medical History Age-related osteoporosis without current pathological fracture Chronic pain GERD (gastroesophageal reflux disease) Hip fracture, intertrochanteric Hypertension Knee osteoarthritis Osteoarthritis of right hip Osteoporosis Pre-op evaluation Prolapsed uterus Radiculopathy, lumbar region Right hip pain Right leg pain Right sided sciatica Surgical History History of hip surgery (~2017) Right hip fracture History of hip surgery (~2018) Left hip pinned History of tonsillectomy History of total left knee replacement (~2019) History of total right knee replacement (~2018) Family History Mother Alcohol abuse Father High blood pressure Heart disease Brother Alcohol abuse Sister Alcohol abuse Social History (Updated 10/15/21 @ 12:21 by Ngozi Sanchez) marital status: education level: college occupational status: retired occupation: nurse smoking status: Never smoker alcohol intake frequency: does not drink substance use type: does not use MEDS/ALLERGIES Home Medications and Allergies Home Medications Medication Instructions Recorded Confirmed Type cetirizine 10 mg tablet 10 mg PO DAILY 06/16/17 11/04/21 History aspirin 81 mg tablet,delayed 81 mg PO BID ##30 02/21/19 11/04/21 Rx release hydrocodone 10 mg-acetaminophen 1 - 2 tab PO Q4H PRN Pain #60 tabs 02/21/19 11/04/21 Rx 325 mg tablet verapamil 120 mg 24 hr 120 mg PO DAILY 02/21/19 11/04/21 History capsule,extended release bisoprolol 2.5 1 tab PO QDAY 10/14/21 11/04/21 History mg-hydrochlorothiazide 6.25 mg tablet celecoxib 200 mg capsule 200 mg PO BID 10/14/21 11/04/21 History conjugated estrogens 0.625 mg/gram 500 mg vaginal 10/14/21 11/04/21 History vaginal cream (Premarin) esomeprazole magnesium 20 mg 20 mg PO QDAY 10/14/21 11/04/21 History capsule,delayed release pregabalin 50 mg capsule 50 mg PO TID PRN pain #90 caps 12/15/21 Rx hydrocodone 5 mg-acetaminophen 325 1 tab PO Q4H PRN pain #14 tabs 05/13/22 Rx mg tablet Allergies Allergy/AdvReac Type Severity Reaction Status Date / Time Amoxicillin Allergy Mild Rash Verified 05/15/22 19:04 cephalexin [From Keflex] Allergy Mild Rash Verified 05/15/22 19:04 dust/hay Allergy Unknown Unknown Uncoded 03/04/22 12:31 EXAM Constitutional Vitals: Temp Pulse Resp Pulse Ox O2 Del Method 97.4 F 74 16 99 Room Air 05/15/22 19:04 05/15/22 19:04 05/15/22 19:04 05/15/22 19:04 05/15/22 19:04 A/P Narrative A/P Narrative: Assessment: 77-year-old female with a history of osteoporosis, stroke, history of right and left hip replacements admitted for a right greater trochanteric base fracture. Orthopedic surgery has evaluated the patient and determined that this is a nonoperative fracture. The patient is admitted for pain management, physical therapy and supportive cares. #Acute fracture of right greater trochanteric base #Anemia #Hypertension #History of stroke w/ persistent left-sided weakness #Osteoporosis #GERD Plan -Multimodal analgesics. -Monitor hemoglobin. -Home medication reconciliation. -PT consult. -Regular diet. -DVT prophylaxis: Lovenox Time Spent With Patient Time: Total time spent is greater than 50% in coordination of care (as documented) at patient's floor/unit and/or counseling patient:
[2022-05-15] MEDS ORDERED: ONDANSETRON 4 MG/2 ML VIAL IV PRN (21:26)
[2022-05-15] MEDS ORDERED: KETOROLAC 30 MG/ML VIAL IV PRN (21:26)
[2022-05-15] MEDS ORDERED: ACETAMINOPHEN 325 MG TABLET PO PRN (21:26)
[2022-05-15] MEDS ORDERED: ACETAMINOPHEN 500 MG TABLET PO PRN (21:45)
[2022-05-15] MEDS: SENNOSIDES 1 TABLET PO SCH (22:49)
[2022-05-15] MEDS: ENOXAPARIN 40 MG/0.4 ML SYRINGE SQ SCH (22:49)
[2022-05-15] MEDS: DOCUSATE SODIUM 100 MG CAPSULE PO SCH (22:49)
[2022-05-15] MEDS: 0.9 % SODIUM CHLORIDE 10 ML SYRINGE IV SCH (22:50)
[2022-05-16] MEDS: 0.9 % SODIUM CHLORIDE 10 ML SYRINGE IV SCH ×3 (05:46→21:04)
[2022-05-16] MEDS ORDERED: PREGABALIN 50 MG PO PRN (06:02)
[2022-05-16] MEDS: ACETAMINOPHEN 500 MG TABLET PO SCH ×3 (08:21→23:23)
[2022-05-16] MEDS: PANTOPRAZOLE 40 MG TABLET PO SCH (08:21)
[2022-05-16] MEDS: HYDROmorphone 0.5 MG/0.5 ML SYRINGE IV PRN ×2 (08:28→13:12)
[2022-05-16] MEDS: ENOXAPARIN 40 MG/0.4 ML SYRINGE SQ SCH (09:40)
[2022-05-16] MEDS: VERAPAMIL 120 MG TAB.XL.24H PO SCH (09:41)
[2022-05-16] MEDS: BISOPROLOL 5 MG TABLET PO SCH (09:41)
[2022-05-16] MEDS: BACLOFEN 10 MG TABLET PO PRN ×2 (09:41→20:02)
[2022-05-16] MEDS: DOCUSATE SODIUM 100 MG CAPSULE PO SCH ×2 (09:41→20:02)
[2022-05-16] MEDS: CLOPIDOGREL 75 MG TABLET PO SCH (09:41)
[2022-05-16] MEDS: oxyCODONE HCL 5 MG TABLET PO PRN ×2 (09:42→16:43)
[2022-05-16] MEDS: CELECOXIB 200 MG CAPSULE PO SCH ×2 (09:42→20:02)
[2022-05-16] MEDS: ATORVASTATIN 40 MG TABLET PO SCH (09:42)
[2022-05-16] MEDS: POLYETHYLENE GLYCOL 3350 17 GM PACKET PO SCH (09:43)
--- NOTE | 2022-05-16 10:06 | Internal Med Progress Note ---
SUBJECTIVE Subjective Patient information: Note initiated : 05/16/22 at 10:06 am Service Date, if different from initiated Date: [] Patient: Denise Hairston 77 y/o F admitted on 05/15/22 for known left femur fracture. Chief Complaint: [] Interval history: Ms. Hairston is a 77-year-old female with a history of osteoporosis, stroke, history of right and left hip replacements presented to the emergency department with severe right hip pain and inability to walk. The patient presented to the ED on 05/13/2022 for the same symptoms, imaging including a CT pelvis showed a transverse mildly comminuted fracture to the right greater trochanteric base w ith mild displacement. [facility] and the patient was discharged to home however when the images were reviewed by staff radiologist the fracture was documented. This was later discovered when the patient's pain did not resolve. Orthopedic surgery evaluated the CT scan and determined the fracture was nonoperative. Hospital medicine was asked to admit the patient for pain management, physical therapy and supportive cares. 05/16 Stable overnight, pain adequately controlled. Started Celebrex BID and discontinued IV Toradol prn. Physical exam Head: Atraumatic, normal inspection. Eyes: normal appearance, no scleral icterus. Neck: full ROM Respiratory: no respiratory distress. Cardiovascular: normal rate and rhythm, S1, S2. GI/Abdominal: soft, nontender, no guarding. Extremities: Right hip tenderness. Neurological: CN II-XII intact, modest left-sided upper extremity and lower extremity weakness, intact sensation. Psychiatric: normal mood. Skin: warm, normal color Constitutional Vitals: Vital Signs Temp Pulse Resp BP Pulse Ox O2 Del Method 97.3 F 80 16 139/95 96 Room Air 05/16/22 04:00 05/16/22 04:00 05/16/22 04:00 05/16/22 04:00 05/16/22 04:00 05/16/22 04:00 Period Temp Pulse Resp BP Sys/Romano Pulse Ox O2 Del Method O2 Flow Rate Last 24 Hr 97.3 F-98.2 F 74-88 16-17 125-159/85-98 96-99 Room Air-Room Air Intake and Output 05/15/22 05/16/22 05/16/22 19:59 03:59 11:59 Output Total 250 Balance -250 Weight 53.524 kg 58.995 kg 58.995 kg Patient Weight 05/17/22 04:59 Weight 58.995 kg Intake & Output: Intake & Output 05/15/22 05/16/22 05/16/22 19:59 03:59 11:59 Output Total 250 Balance -250 Weight 53.524 kg 58.995 kg 58.995 kg Output: Urine Catheter Amount 250 Other: Urine Appearance Clear Clear Uretheral (Bernardo) Clear Urine Color Yellow Yellow Uretheral (Bernardo) Yellow Urine Odor Normal Normal Uretheral (Bernardo) Normal OBJ DATA Labs 05/16/22 05:33 Meds: Medications Acetaminophen (Acetaminophen 500 Mg Tablet) 1,000 mg PO Q8H [facility]; Protocol Last Admin: 05/16/22 08:21 Dose: 1,000 mg Atorvastatin Calcium (Atorvastatin 40 Mg Tablet) 40 mg PO QDAY [facility] Last Admin: 05/16/22 09:42 Dose: 40 mg Baclofen (Baclofen 10 Mg Tablet) 10 mg PO TIDP PRN PRN Reason: Muscle Spasticity Last Admin: 05/16/22 09:41 Dose: 10 mg Bisoprolol Fumarate (Bisoprolol 5 Mg Tablet) 2.5 mg PO QDAY [facility] Last Admin: 05/16/22 09:41 Dose: 2.5 mg Celecoxib (Celecoxib 200 Mg Capsule) 200 mg PO BID [facility] Last Admin: 05/16/22 09:42 Dose: 200 mg Clopidogrel Bisulfate (Clopidogrel 75 Mg Tablet) 75 mg PO QAM [facility] Last Admin: 05/16/22 09:41 Dose: 75 mg Docusate Sodium (Docusate Sodium 100 Mg Capsule) 100 mg PO BID [facility] Last Admin: 05/16/22 09:41 Dose: 100 mg Enoxaparin Sodium (Enoxaparin 40 Mg/0.4 Ml Syringe) 40 mg SQ DAILY [facility] Last Admin: 05/16/22 09:40 Dose: 40 mg Hydromorphone HCl (Hydromorphone 0.5 Mg/0.5 Ml Syringe) 0.5 mg IV Q2HP PRN; Protocol PRN Reason: Per Pain Protocol Last Admin: 05/16/22 08:28 Dose: 0.5 mg Ondansetron HCl (Ondansetron 4 Mg/2 Ml Vial) 4 mg IV Q6HP PRN PRN Reason: Nausea And Vomiting Oxycodone HCl (Oxycodone Hcl 5 Mg Tablet) 5 mg PO Q4HP PRN; Protocol PRN Reason: Per Pain Protocol Last Admin: 05/16/22 09:42 Dose: 5 mg Pantoprazole Sodium (Pantoprazole 40 Mg Tablet) 40 mg PO QAMAC [facility] Last Admin: 05/16/22 08:21 Dose: 40 mg Pneumococcal Polyvalent Vaccine (Pneumococcal 23-Luz P-Sac Vac 0.5 Ml Syringe) 0.5 ml IM .ONCE ONE Stop: 05/17/22 10:01 Polyethylene Glycol (Polyethylene Glycol 3350 17 Gm Packet) 17 gm PO DAILY [facility] Last Admin: 05/16/22 09:43 Dose: Not Given Senna (Sennosides 1 Tablet) 2 tab PO HS [facility] Last Admin: 05/15/22 22:49 Dose: 2 tab Sodium Chloride (0.9 % Sodium Chloride 10 Ml Syringe) 10 ml IV Q8 [facility] Last Admin: 05/16/22 05:46 Dose: 10 ml Verapamil HCl (Verapamil 120 Mg Tab.Xl.24h) 120 mg PO DAILY [facility] Last Admin: 05/16/22 09:41 Dose: 120 mg A/P Narrative A/P Narrative: Assessment: 77-year-old female with a history of osteoporosis, stroke, history of right and left hip replacements admitted for a right greater trochanteric base fracture. Orthopedic surgery has evaluated the patient and determined that this is a nonoperative fracture. The patient is admitted for pain management, physical therapy and supportive cares. #Acute fracture of right greater trochanteric base #Hypertension #History of stroke w/ persistent left-sided weakness #Osteoporosis #GERD Plan -Scheduled and as needed analgesics. -Home medications. -PT consult. -Regular diet. -DVT prophylaxis: Lovenox Time Spent With Patient Time: Total time spent is greater than 50% in coordination of care (as documented) at patient's floor/unit and/or counseling patient: QUALITY VTE Deep Vein Thrombosis/Pulmonary Embolism Present on Admission: No
[2022-05-16] MEDS: SENNOSIDES 1 TABLET PO SCH (20:02)
[2022-05-17] MEDS: 0.9 % SODIUM CHLORIDE 10 ML SYRINGE IV SCH ×4 (05:42→20:35)
[2022-05-17] MEDS: PANTOPRAZOLE 40 MG TABLET PO SCH (07:13)
[2022-05-17] MEDS: oxyCODONE HCL 5 MG TABLET PO PRN ×3 (07:23→16:36)
[2022-05-17] MEDS: ACETAMINOPHEN 500 MG TABLET PO SCH ×2 (07:23→16:36)
--- NOTE | 2022-05-17 08:12 | Internal Med Progress Note ---
SUBJECTIVE Subjective Patient information: Note initiated : 05/17/22 at 8:11 am Service Date, if different from initiated Date: [] Patient: Denise Hairston 77 y/o F admitted on 05/15/22 for known left femur fracture. Chief Complaint: [] Interval history: Ms. Hairston is a 77-year-old female with a history of hypertension, GERD, ischemic stroke in February 2022 complicated by persistent left-sided weakness, osteoporosis complicated by recent right and left hip fractures requiring hip replacements presented to the emergency department with severe right hip pain and inability to walk. The patient presented to the ED on 05/13/2022 for the same symptoms, imaging including a CT pelvis showed a transverse mildly comminuted fracture to the right greater trochanteric base with mild displacement. This was apparently missed by the outside nighttime radiology provider however later identified by [facility] radiology. Meanwhile, the patient was discharged to home where she continued to have persistent pain. The patient's primary care provider reportedly reviewed the CT scan report and noted the documented fracture then instructed the patient to go to the ED for further evaluation and management. Orthopedic surgery was consulted and determined the fracture was nonoperative. Hospital medicine was asked to admit the patient for pain management, physical therapy and supportive cares. 05/16 Stable overnight, pain adequately controlled. Started Celebrex BID and discontinued IV Toradol prn. Resume home medications. 05/17 Vitals stable overnight, resting comfortably this morning. Continue analgesic regimen. Physical exam Head: Atraumatic, normal inspection. Eyes: normal appearance, no scleral icterus. Neck: full ROM Respiratory: no respiratory distress. Cardiovascular: normal rate and rhythm, S1, S2. GI/Abdominal: soft, nontender, no guarding. Extremities: Right hip tenderness. Neurological: CN II-XII intact, modest left-sided upper extremity and lower extremity weakness, intact sensation. Psychiatric: normal mood. Skin: warm, normal color Constitutional Vitals: Vital Signs Temp Pulse Resp BP Pulse Ox O2 Del Method 98.3 F 77 16 157/79 97 Room Air 05/17/22 07:36 05/17/22 07:36 05/17/22 07:36 05/17/22 07:36 05/17/22 07:36 05/17/22 07:36 Period Temp Pulse Resp BP Sys/Romano Pulse Ox O2 Del Method O2 Flow Rate Last 24 Hr 96.9 F-98.4 F 68-83 16-18 138-157/79-97 95-98 Room Air-Room Air Intake and Output 05/16/22 05/17/22 05/17/22 18:59 03:59 11:59 Intake Total 420 Output Total 225 Balance 195 Weight Intake & Output: Intake & Output 05/16/22 05/17/22 05/17/22 18:59 03:59 11:59 Intake Total 420 Output Total 225 Balance 195 Weight Intake: Oral 420 GI Tube Flush Output: Urine Catheter Amount 225 Other: Meal Percent of Meal Consumed Feeding Ability Urine Appearance Clear Uretheral (Bernardo) Urine Color Yellow Uretheral (Bernardo) Urine Odor Normal Uretheral (Bernardo) Stool Size Stool Color Stool Consistency # Bowel Movements OBJ DATA Labs 05/16/22 05:33 Meds: Medications Acetaminophen (Acetaminophen 500 Mg Tablet) 1,000 mg PO Q8H [facility]; Protocol Last Admin: 05/17/22 07:23 Dose: 1,000 mg Atorvastatin Calcium (Atorvastatin 40 Mg Tablet) 40 mg PO QDAY [facility] Last Admin: 05/16/22 09:42 Dose: 40 mg Baclofen (Baclofen 10 Mg Tablet) 10 mg PO TIDP PRN PRN Reason: Muscle Spasticity Last Admin: 05/16/22 20:02 Dose: 10 mg Bisoprolol Fumarate (Bisoprolol 5 Mg Tablet) 2.5 mg PO QDAY [facility] Last Admin: 05/16/22 09:41 Dose: 2.5 mg Celecoxib (Celecoxib 200 Mg Capsule) 200 mg PO BID [facility] Last Admin: 05/16/22 20:02 Dose: 200 mg Clopidogrel Bisulfate (Clopidogrel 75 Mg Tablet) 75 mg PO QAM [facility] Last Admin: 05/16/22 09:41 Dose: 75 mg Docusate Sodium (Docusate Sodium 100 Mg Capsule) 100 mg PO BID [facility] Last Admin: 05/16/22 20:02 Dose: Not Given Enoxaparin Sodium (Enoxaparin 40 Mg/0.4 Ml Syringe) 40 mg SQ DAILY [facility] Last Admin: 05/16/22 09:40 Dose: 40 mg Hydromorphone HCl (Hydromorphone 0.5 Mg/0.5 Ml Syringe) 0.5 mg IV Q2HP PRN; Protocol PRN Reason: Per Pain Protocol Last Admin: 05/16/22 13:12 Dose: 0.5 mg Ondansetron HCl (Ondansetron 4 Mg/2 Ml Vial) 4 mg IV Q6HP PRN PRN Reason: Nausea And Vomiting Oxycodone HCl (Oxycodone Hcl 5 Mg Tablet) 5 mg PO Q4HP PRN; Protocol PRN Reason: Per Pain Protocol Last Admin: 05/17/22 07:23 Dose: 5 mg Pantoprazole Sodium (Pantoprazole 40 Mg Tablet) 40 mg PO QAMAC [facility] Last Admin: 05/17/22 07:13 Dose: 40 mg Pneumococcal Polyvalent Vaccine (Pneumococcal 23-Luz P-Sac Vac 0.5 Ml Syringe) 0.5 ml IM .ONCE ONE Stop: 05/17/22 10:01 Polyethylene Glycol (Polyethylene Glycol 3350 17 Gm Packet) 17 gm PO DAILY [facility] Last Admin: 05/16/22 09:43 Dose: Not Given Senna (Sennosides 1 Tablet) 2 tab PO HS [facility] Last Admin: 05/16/22 20:02 Dose: Not Given Sodium Chloride (0.9 % Sodium Chloride 10 Ml Syringe) 10 ml IV Q8 [facility] Last Admin: 05/17/22 05:42 Dose: 10 ml Verapamil HCl (Verapamil 120 Mg Tab.Xl.24h) 120 mg PO DAILY [facility] Last Admin: 05/16/22 09:41 Dose: 120 mg A/P Narrative A/P Narrative: Assessment: 77-year-old female with a history of osteoporosis, ischemic stroke stroke in February 2022, history of right and left hip replacements admitted for a right greater trochanteric base fracture. Orthopedic surgery has evaluated the patient and determined that this is a nonoperative fracture. The patient is admitted for pain management, physical therapy, and supportive cares. #Acute fracture through right greater trochanteric base with mild displacement (nonoperative) #Recent right and left hip arthroplasties #Recent ischemic stroke w/ persistent left-sided weakness #Hypertension #Osteoporosis #GERD Plan -Scheduled and as needed analgesics. -Continue home Atorvastatin, bisoprolol, Plavix, verapamil. -PT consult. -Regular diet. -DVT prophylaxis: Lovenox -CODE STATUS: DNR/DNI -Disposition: Currently inpatient MedSurg for analgesics, including IV analgesics. Discharge disposition to be determined. Time Spent With Patient Time: Total time spent is greater than 50% in coordination of care (as documented) at patient's floor/unit and/or counseling patient: QUALITY VTE Deep Vein Thrombosis/Pulmonary Embolism Present on Admission: No
[2022-05-17] MEDS: ENOXAPARIN 40 MG/0.4 ML SYRINGE SQ SCH (09:38)
[2022-05-17] MEDS: VERAPAMIL 120 MG TAB.XL.24H PO SCH (09:39)
[2022-05-17] MEDS: CLOPIDOGREL 75 MG TABLET PO SCH (09:39)
[2022-05-17] MEDS: BACLOFEN 10 MG TABLET PO PRN ×2 (09:39→16:36)
[2022-05-17] MEDS: BISOPROLOL 5 MG TABLET PO SCH (09:39)
[2022-05-17] MEDS: ATORVASTATIN 40 MG TABLET PO SCH (09:39)
[2022-05-17] MEDS: CELECOXIB 200 MG CAPSULE PO SCH ×2 (09:39→20:34)
[2022-05-17] MEDS: POLYETHYLENE GLYCOL 3350 17 GM PACKET PO SCH (09:40)
[2022-05-17] MEDS: DOCUSATE SODIUM 100 MG CAPSULE PO SCH ×2 (09:40→20:35)
[2022-05-17] MEDS ORDERED: PNEUMOCOCCAL 23-VAL P-SAC VAC 0.5 ML SYRINGE IM ONE (10:00)
[2022-05-17] MEDS: HYDROmorphone 0.5 MG/0.5 ML SYRINGE IV PRN ×2 (15:40→21:13)
[2022-05-17] MEDS: SENNOSIDES 1 TABLET PO SCH (20:35)
[2022-05-18] MEDS: ACETAMINOPHEN 500 MG TABLET PO SCH ×3 (00:44→17:01)
[2022-05-18] MEDS: oxyCODONE HCL 5 MG TABLET PO PRN ×2 (04:04→21:27)
[2022-05-18] MEDS: 0.9 % SODIUM CHLORIDE 10 ML SYRINGE IV SCH ×3 (04:05→21:12)
[2022-05-18] MEDS: PANTOPRAZOLE 40 MG TABLET PO SCH (07:38)
--- NOTE | 2022-05-18 10:30 | Internal Med Progress Note ---
SUBJECTIVE Subjective Patient information: Note initiated : 05/18/22 at 10:29 am Service Date, if different from initiated Date: [] Patient: Denise Hairston 77 y/o F admitted on 05/15/22 for known left femur fracture. Chief Complaint: [Left femoral fracture] Principal diagnosis: Left femoral fracture Interval history: Clinically, the patient is stable and doing well. She states that her pain is better controlled. Discussed disposition. Constitutional Vitals: Vital Signs Temp Pulse Resp BP Pulse Ox O2 Del Method 97.5 F 66 20 158/79 98 Room Air 05/18/22 08:00 05/18/22 08:00 05/18/22 08:00 05/18/22 08:00 05/18/22 08:00 05/18/22 08:00 Period Temp Pulse Resp BP Sys/Romano Pulse Ox O2 Del Method O2 Flow Rate Last 24 Hr 97.3 F-98.0 F 62-78 16-20 136-158/72-89 96-99 Room Air-Room Air Intake and Output 05/17/22 05/18/22 05/18/22 19:59 03:59 11:59 Intake Total 100 Output Total 750 450 400 Balance -750 -350 -400 Weight 60.509 kg Intake & Output: Intake & Output 05/17/22 05/18/22 05/18/22 19:59 03:59 11:59 Intake Total 100 Output Total 750 450 400 Balance -750 -350 -400 Weight 60.509 kg Intake: Oral 100 Output: Urine Catheter Amount 750 200 Void Amount 250 400 Other: Urine Appearance Clear Urine Color Dark Yellow Yellow Urine Odor Normal Normal Head Head exam: Present atraumatic and normal inspection Eye Eye exam: Present normal appearance ENT ENT exam: Present mucous membranes moist, normal exam and normal external ear exam Neck Neck exam: Present normal inspection Respiratory Respiratory exam: Present normal respiratory exam Cardiovascular Cardiovascular exam: Present normal rate and rhythm GI/Abdominal GI/Abdominal exam: Present normal bowel sounds Back Exam Back exam: Present normal inspection Neurological Exam Neurological exam: Present alert and oriented X3 Skin Skin exam: Present intact and warm OBJ DATA Labs 05/16/22 05:33 Meds: Medications Acetaminophen (Acetaminophen 500 Mg Tablet) 1,000 mg PO Q8H [facility]; Protocol Last Admin: 05/18/22 07:38 Dose: 1,000 mg Atorvastatin Calcium (Atorvastatin 40 Mg Tablet) 40 mg PO QDAY [facility] Last Admin: 05/17/22 09:39 Dose: 40 mg Baclofen (Baclofen 10 Mg Tablet) 10 mg PO TIDP PRN PRN Reason: Muscle Spasticity Last Admin: 05/17/22 16:36 Dose: 10 mg Bisoprolol Fumarate (Bisoprolol 5 Mg Tablet) 2.5 mg PO QDAY [facility] Last Admin: 05/17/22 09:39 Dose: 2.5 mg Celecoxib (Celecoxib 200 Mg Capsule) 200 mg PO BID [facility] Last Admin: 05/17/22 20:34 Dose: 200 mg Clopidogrel Bisulfate (Clopidogrel 75 Mg Tablet) 75 mg PO QAM [facility] Last Admin: 05/17/22 09:39 Dose: 75 mg Docusate Sodium (Docusate Sodium 100 Mg Capsule) 100 mg PO BID [facility] Last Admin: 05/17/22 20:35 Dose: 100 mg Enoxaparin Sodium (Enoxaparin 40 Mg/0.4 Ml Syringe) 40 mg SQ DAILY [facility] Last Admin: 05/17/22 09:38 Dose: 40 mg Hydromorphone HCl (Hydromorphone 0.5 Mg/0.5 Ml Syringe) 0.5 mg IV Q2HP PRN; Pr otocol PRN Reason: Per Pain Protocol Last Admin: 05/17/22 21:13 Dose: 0.5 mg Ondansetron HCl (Ondansetron 4 Mg/2 Ml Vial) 4 mg IV Q6HP PRN PRN Reason: Nausea And Vomiting Oxycodone HCl (Oxycodone Hcl 5 Mg Tablet) 5 mg PO Q4HP PRN; Protocol PRN Reason: Per Pain Protocol Last Admin: 05/18/22 04:04 Dose: 5 mg Pantoprazole Sodium (Pantoprazole 40 Mg Tablet) 40 mg PO QAMAC [facility] Last Admin: 05/18/22 07:38 Dose: 40 mg Polyethylene Glycol (Polyethylene Glycol 3350 17 Gm Packet) 17 gm PO DAILY [facility] Last Admin: 05/17/22 09:40 Dose: Not Given Senna (Sennosides 1 Tablet) 2 tab PO HS [facility] Last Admin: 05/17/22 20:35 Dose: 2 tab Sodium Chloride (0.9 % Sodium Chloride 10 Ml Syringe) 10 ml IV Q8 [facility] Last Admin: 05/18/22 04:05 Dose: 10 ml Verapamil HCl (Verapamil 120 Mg Tab.Xl.24h) 120 mg PO DAILY [facility] Last Admin: 05/17/22 09:39 Dose: 120 mg A/P Narrative A/P Narrative: Assessment: 77-year-old female with a history of osteoporosis, ischemic stroke stroke in February 2022, history of right and left hip replacements admitted for a right greater trochanteric base fracture. Orthopedic surgery has evaluated the patient and determined that this is a nonoperative fracture. The patient is admitted for pain management, physical therapy, and supportive cares. #Acute fracture through right greater trochanteric base with mild displacement (nonoperative) #Recent right and left hip arthroplasties #Recent ischemic stroke w/ persistent left-sided weakness #Hypertension #Osteoporosis #GERD Plan -Scheduled and as needed analgesics. -Continue home Atorvastatin, bisoprolol, Plavix, verapamil. -PT consult. -Regular diet. -DVT prophylaxis: Lovenox -CODE STATUS: DNR/DNI -Disposition: Currently inpatient MedSurg for analgesics, including IV analgesics. Discharge disposition to be determined. Time Spent With Patient Time: Total time spent is greater than 50% in coordination of care (as documented) at patient's floor/unit and/or counseling patient: QUALITY VTE Deep Vein Thrombosis/Pulmonary Embolism Present on Admission: No
[2022-05-18] MEDS: POLYETHYLENE GLYCOL 3350 17 GM PACKET PO SCH (10:32)
[2022-05-18] MEDS: CELECOXIB 200 MG CAPSULE PO SCH ×2 (10:32→21:11)
[2022-05-18] MEDS: ENOXAPARIN 40 MG/0.4 ML SYRINGE SQ SCH (10:32)
[2022-05-18] MEDS: CLOPIDOGREL 75 MG TABLET PO SCH (10:32)
[2022-05-18] MEDS: VERAPAMIL 120 MG TAB.XL.24H PO SCH (10:32)
[2022-05-18] MEDS: BISOPROLOL 5 MG TABLET PO SCH (10:32)
[2022-05-18] MEDS: ATORVASTATIN 40 MG TABLET PO SCH (10:33)
[2022-05-18] MEDS: DOCUSATE SODIUM 100 MG CAPSULE PO SCH ×2 (10:33→21:10)
[2022-05-18] MEDS: SENNOSIDES 1 TABLET PO SCH (21:11)
[2022-05-19] MEDS: ACETAMINOPHEN 500 MG TABLET PO SCH ×4 (00:14→23:09)
[2022-05-19] MEDS: oxyCODONE HCL 5 MG TABLET PO PRN ×4 (04:32→20:45)
[2022-05-19] MEDS: 0.9 % SODIUM CHLORIDE 10 ML SYRINGE IV SCH ×3 (04:33→20:46)
[2022-05-19] MEDS: PANTOPRAZOLE 40 MG TABLET PO SCH (07:45)
[2022-05-19] MEDS: VERAPAMIL 120 MG TAB.XL.24H PO SCH (08:25)
[2022-05-19] MEDS: BISOPROLOL 5 MG TABLET PO SCH (08:25)
[2022-05-19] MEDS: CELECOXIB 200 MG CAPSULE PO SCH ×2 (08:25→20:46)
[2022-05-19] MEDS: ENOXAPARIN 40 MG/0.4 ML SYRINGE SQ SCH (08:26)
[2022-05-19] MEDS: ATORVASTATIN 40 MG TABLET PO SCH (08:26)
[2022-05-19] MEDS: POLYETHYLENE GLYCOL 3350 17 GM PACKET PO SCH (08:26)
[2022-05-19] MEDS: DOCUSATE SODIUM 100 MG CAPSULE PO SCH ×2 (08:26→20:46)
[2022-05-19] MEDS: CLOPIDOGREL 75 MG TABLET PO SCH (08:26)
--- NOTE | 2022-05-19 09:57 | Internal Med Progress Note ---
SUBJECTIVE Subjective Patient information: Note initiated : 05/19/22 at 9:56 am Service Date, if different from initiated Date: [] Patient: Denise Hairston 77 y/o F admitted on 05/15/22 for known left femur fracture. Chief Complaint: [] Principal diagnosis: Left femoral fracture Interval history: Clinically stable resting in bed. She states that she worked with physical therapy yesterday. Social work is working on disposition. Constitutional Vitals: Vital Signs Temp Pulse Resp BP Pulse Ox O2 Del Method O2 Flow Rate 97.5 F 64 20 137/87 99 Room Air 97 05/19/22 07:23 05/19/22 07:23 05/19/22 07:23 05/19/22 07:23 05/19/22 04:04 05/19/22 07:23 05/19/22 07:23 Period Temp Pulse Resp BP Sys/Romano Pulse Ox O2 Del Method O2 Flow Rate Last 24 Hr 97.5 F-98.1 F 64-76 18-20 131-152/62-89 96-99 Room Air-Room Air 97 Intake and Output 05/18/22 05/19/22 05/19/22 19:59 03:59 11:59 Intake Total 240 275 Output Total 525 350 Balance -285 -75 Weight 60.736 kg Intake & Output: Intake & Output 05/18/22 05/19/22 05/19/22 19:59 03:59 11:59 Intake Total 240 275 Output Total 525 350 Balance -285 -75 Weight 60.736 kg Intake: Oral 240 275 Output: Void Amount 525 350 Other: Urine Appearance Clear Clear Urine Color Yellow Yellow Urine Odor Normal Normal Head Head exam: Present atraumatic and normal inspection Eye Eye exam: Present normal appearance ENT ENT exam: Present mucous membranes moist, normal exam and normal external ear exam Neck Neck exam: Present normal inspection Respiratory Respiratory exam: Present normal respiratory exam Cardiovascular Cardiovascular exam: Present normal rate and rhythm GI/Abdominal GI/Abdominal exam: Present normal bowel sounds Back Exam Back exam: Present normal inspection Neurological Exam Neurological exam: Present alert and oriented X3 Skin Skin exam: Present intact and warm OBJ DATA Labs 05/16/22 05:33 Meds: Medications Acetaminophen (Acetaminophen 500 Mg Tablet) 1,000 mg PO Q8H [facility]; Protocol Last Admin: 05/19/22 07:45 Dose: 1,000 mg Atorvastatin Calcium (Atorvastatin 40 Mg Tablet) 40 mg PO QDAY [facility] Last Admin: 05/19/22 08:26 Dose: 40 mg Baclofen (Baclofen 10 Mg Tablet) 10 mg PO TIDP PRN PRN Reason: Muscle Spasticity Last Admin: 05/17/22 16:36 Dose: 10 mg Bisoprolol Fumarate (Bisoprolol 5 Mg Tablet) 2.5 mg PO QDAY [facility] Last Admin: 05/19/22 08:25 Dose: 2.5 mg Celecoxib (Celecoxib 200 Mg Capsule) 200 mg PO BID [facility] Last Admin: 05/19/22 08:25 Dose: 200 mg Clopidogrel Bisulfate (Clopidogrel 75 Mg Tablet) 75 mg PO QAM [facility] Last Admin: 05/19/22 08:26 Dose: 75 mg Docusate Sodium (Docusate Sodium 100 Mg Capsule) 100 mg PO BID [facility] Last Admin: 05/19/22 08:26 Dose: 100 mg Enoxaparin Sodium (Enoxaparin 40 Mg/0.4 Ml Syringe) 40 mg SQ DAILY [facility] Last Admin: 05/19/22 08:26 Dose: 40 mg Hydromorphone HCl (Hydromorphone 0.5 Mg/0.5 Ml Syringe) 0.5 mg IV Q2HP PRN; Protocol PRN Reason: Per Pain Protocol Last Admin: 05/17/22 21:13 Dose: 0.5 mg Ondansetron HCl (Ondansetron 4 Mg/2 Ml Vial) 4 mg IV Q6HP PRN PRN Reason: Nausea And Vomiting Oxycodone HCl (Oxycodone Hcl 5 Mg Tablet) 5 mg PO Q4HP PRN; Protocol PRN Reason: Per Pain Protocol Last Admin: 05/19/22 08:26 Dose: 5 mg Pantoprazole Sodium (Pantoprazole 40 Mg Tablet) 40 mg PO QAMAC [facility] Last Admin: 05/19/22 07:45 Dose: 40 mg Polyethylene Glycol (Polyethylene Glycol 3350 17 Gm Packet) 17 gm PO DAILY [facility] Last Admin: 05/19/22 08:26 Dose: 17 gm Senna (Sennosides 1 Tablet) 2 tab PO HS [facility] Last Admin: 05/18/22 21:11 Dose: Not Given Sodium Chloride (0.9 % Sodium Chloride 10 Ml Syringe) 10 ml IV Q8 [facility] Last Admin: 05/19/22 04:33 Dose: 10 ml Verapamil HCl (Verapamil 120 Mg Tab.Xl.24h) 120 mg PO DAILY [facility] Last Admin: 05/19/22 08:25 Dose: 120 mg A/P Narrative A/P Narrative: Assessment: 77-year-old female with a history of osteoporosis, ischemic stroke stroke in February 2022, history of right and left hip replacements admitted for a right greater trochanteric base fracture. Orthopedic surgery has evaluated the patient and determined that this is a nonoperative fracture. The patient is admitted for pain management, physical therapy, and supportive cares. #Acute fracture through right greater trochanteric base with mild displacement (nonoperative) #Recent right and left hip arthroplasties #Recent ischemic stroke w/ persistent left-sided weakness #Hypertension #Osteoporosis #GERD Plan -Scheduled and as needed analgesics. -Continue home Atorvastatin, bisoprolol, Plavix, verapamil. -PT consult. -Regular diet. -DVT prophylaxis: Lovenox -CODE STATUS: DNR/DNI -Disposition: Currently inpatient MedSurg for analgesics, including IV analgesics. Discharge disposition to be determined. Time Spent With Patient Time: Total time spent is greater than 50% in coordination of care (as documented) at patient's floor/unit and/or counseling patient: Subsequent: Total time with patient: 25 - 34 minutes QUALITY VTE Deep Vein Thrombosis/Pulmonary Embolism Present on Admission: No
[2022-05-19] MEDS: BACLOFEN 10 MG TABLET PO PRN ×2 (12:24→20:44)
[2022-05-19] MEDS: SENNOSIDES 1 TABLET PO SCH (20:46)
[2022-05-20] MEDS: 0.9 % SODIUM CHLORIDE 10 ML SYRINGE IV SCH ×3 (05:32→21:22)
[2022-05-20] MEDS: PANTOPRAZOLE 40 MG TABLET PO SCH (07:44)
[2022-05-20] MEDS: VERAPAMIL 120 MG TAB.XL.24H PO SCH (08:57)
[2022-05-20] MEDS: CLOPIDOGREL 75 MG TABLET PO SCH (08:57)
[2022-05-20] MEDS: DOCUSATE SODIUM 100 MG CAPSULE PO SCH ×2 (08:57→21:05)
[2022-05-20] MEDS: CELECOXIB 200 MG CAPSULE PO SCH ×2 (08:57→21:05)
[2022-05-20] MEDS: ENOXAPARIN 40 MG/0.4 ML SYRINGE SQ SCH (08:57)
[2022-05-20] MEDS: BISOPROLOL 5 MG TABLET PO SCH (08:58)
[2022-05-20] MEDS: ATORVASTATIN 40 MG TABLET PO SCH (08:58)
[2022-05-20] MEDS: ACETAMINOPHEN 500 MG TABLET PO SCH ×2 (08:58→16:40)
[2022-05-20] MEDS: POLYETHYLENE GLYCOL 3350 17 GM PACKET PO SCH (08:59)
[2022-05-20] MEDS: oxyCODONE HCL 5 MG TABLET PO PRN ×3 (08:59→21:05)
--- NOTE | 2022-05-20 09:12 | Internal Med Progress Note ---
SUBJECTIVE Subjective Patient information: Note initiated : 05/20/22 at 9:11 am Service Date, if different from initiated Date: [] Patient: Denise Hairston 77 y/o F admitted on 05/15/22 for known left femur fracture. Chief Complaint: [] Principal diagnosis: Left femoral fracture Interval history: Clinically stable awaiting discharge placement. Constitutional Vitals: Vital Signs Temp Pulse Resp BP Pulse Ox O2 Del Method O2 Flow Rate 97.3 F 68 18 150/86 96 Room Air 97 05/20/22 08:00 05/20/22 08:00 05/20/22 08:00 05/20/22 08:00 05/20/22 08:00 05/20/22 08:00 05/19/22 07:23 Period Temp Pulse Resp BP Sys/Romano Pulse Ox O2 Del Method O2 Flow Rate Last 24 Hr 97.1 F-98.2 F 62-80 14-20 119-151/80-92 96-98 Room Air-Room Air Intake and Output 05/19/22 05/20/22 05/20/22 19:59 03:59 11:59 Intake Total 720 100 Output Total 200 250 300 Balance 520 -150 -300 Weight 61.054 kg Intake & Output: Intake & Output 05/19/22 05/20/22 05/20/22 19:59 03:59 11:59 Intake Total 720 100 Output Total 200 250 300 Balance 520 -150 -300 Weight 61.054 kg Intake: Oral 720 100 Output: Void Amount 200 100 300 Urine/Stool Mix 150 Other: Meal Dinner Percent of Meal Consumed 100% Urine Color Yellow Yellow Stool Size Small Stool Color Brown Stool Consistency Formed # Voids 1 Head Head exam: Present atraumatic and normal inspection Eye Eye exam: Present normal appearance ENT ENT exam: Present mucous membranes moist, normal exam and normal external ear exam Neck Neck exam: Present normal inspection Respiratory Respiratory exam: Present normal respiratory exam Cardiovascular Cardiovascular exam: Present normal rate and rhythm GI/Abdominal GI/Abdominal exam: Present normal bowel sounds Back Exam Back exam: Present normal inspection Neurological Exam Neurological exam: Present alert and oriented X3 Skin Skin exam: Present intact and warm OBJ DATA Labs 05/16/22 05:33 Meds: Medications Acetaminophen (Acetaminophen 500 Mg Tablet) 1,000 mg PO Q8H [facility]; Protocol Last Admin: 05/20/22 08:58 Dose: 1,000 mg Atorvastatin Calcium (Atorvastatin 40 Mg Tablet) 40 mg PO QDAY [facility] Last Admin: 05/20/22 08:58 Dose: 40 mg Baclofen (Baclofen 10 Mg Tablet) 10 mg PO TIDP PRN PRN Reason: Muscle Spasticity Last Admin: 05/19/22 20:44 Dose: 10 mg Bisoprolol Fumarate (Bisoprolol 5 Mg Tablet) 2.5 mg PO QDAY [facility] Last Admin: 05/20/22 08:58 Dose: 2.5 mg Celecoxib (Celecoxib 200 Mg Capsule) 200 mg PO BID [facility] Last Admin: 05/20/22 08:57 Dose: 200 mg Clopidogrel Bisulfate (Clopidogrel 75 Mg Tablet) 75 mg PO QAM [facility] Last Admin: 05/20/22 08:57 Dose: 75 mg Docusate Sodium (Docusate Sodium 100 Mg Capsule) 100 mg PO BID [facility] Last Admin: 05/20/22 08:57 Dose: 100 mg Enoxaparin Sodium (Enoxaparin 40 Mg/0.4 Ml Syringe) 40 mg SQ DAILY [facility] Last Admin: 05/20/22 08:57 Dose: 40 mg Hydromorphone HCl (Hydromorphone 0.5 Mg/0.5 Ml Syringe) 0.5 mg IV Q2HP PRN; Protocol PRN Reason: Per Pain Protocol Last Admin: 05/17/22 21:13 Dose: 0.5 mg Ondansetron HCl (Ondansetron 4 Mg/2 Ml Vial) 4 mg IV Q6HP PRN PRN Reason: Nausea And Vomiting Oxycodone HCl (Oxycodone Hcl 5 Mg Tablet) 5 mg PO Q4HP PRN; Protocol PRN Reason: Per Pain Protocol Last Admin: 05/20/22 08:59 Dose: 5 mg Pantoprazole Sodium (Pantoprazole 40 Mg Tablet) 40 mg PO QAMAC [facility] Last Admin: 05/20/22 07:44 Dose: 40 mg Polyethylene Glycol (Polyethylene Glycol 3350 17 Gm Packet) 17 gm PO DAILY [facility] Last Admin: 05/20/22 08:59 Dose: Not Given Senna (Sennosides 1 Tablet) 2 tab PO HS [facility] Last Admin: 05/19/22 20:46 Dose: 2 tab Sodium Chloride (0.9 % Sodium Chloride 10 Ml Syringe) 10 ml IV Q8 [facility] Last Admin: 05/20/22 05:32 Dose: 10 ml Verapamil HCl (Verapamil 120 Mg Tab.Xl.24h) 120 mg PO DAILY [facility] Last Admin: 05/20/22 08:57 Dose: 120 mg A/P Narrative A/P Narrative: Assessment: 77-year-old female with a history of osteoporosis, ischemic stroke stroke in February 2022, history of right and left hip replacements admitted for a right greater trochanteric base fracture. Orthopedic surgery has evaluated the patient and determined that this is a nonoperative fracture. The patient is admitted for pain management, physical therapy, and supportive cares. #Acute fracture through right greater trochanteric base with mild displacement (nonoperative) #Recent right and left hip arthroplasties #Recent ischemic stroke w/ persistent left-sided weakness #Hypertension #Osteoporosis #GERD Plan -Scheduled and as needed analgesics. -Continue home Atorvastatin, bisoprolol, Plavix, verapamil. -PT consult. -Regular diet. -DVT prophylaxis: Lovenox -CODE STATUS: DNR/DNI -Disposition: Currently inpatient MedSurg for analgesics, including IV analgesics. Discharge disposition to be determined. Time Spent With Patient Time: Total time spent is greater than 50% in coordination of care (as documented) at patient's floor/unit and/or counseling patient: Subsequent: Total time with patient: 25 - 34 minutes QUALITY VTE Deep Vein Thrombosis/Pulmonary Embolism Present on Admission: No
[2022-05-20] MEDS: BACLOFEN 10 MG TABLET PO PRN (17:13)
[2022-05-20] MEDS: SENNOSIDES 1 TABLET PO SCH (21:05)
[2022-05-21] MEDS: ACETAMINOPHEN 500 MG TABLET PO SCH ×2 (01:50→08:07)
[2022-05-21] MEDS: 0.9 % SODIUM CHLORIDE 10 ML SYRINGE IV SCH (05:36)
[2022-05-21] MEDS: PANTOPRAZOLE 40 MG TABLET PO SCH (07:03)
[2022-05-21] MEDS: oxyCODONE HCL 5 MG TABLET PO PRN ×2 (07:07→12:23)
--- NOTE | 2022-05-21 08:03 | Internal Med Progress Note ---
SUBJECTIVE Subjective Patient information: Note initiated : 05/21/22 at 8:03 am Service Date, if different from initiated Date: [] Patient: Denise Hairston 77 y/o F admitted on 05/15/22 for known left femur fracture. Chief Complaint: [] Principal diagnosis: Left femoral fracture Interval history: Clinically stable awaiting placement Constitutional Vitals: Vital Signs Temp Pulse Resp BP Pulse Ox O2 Del Method O2 Flow Rate 97.5 F 72 16 161/95 96 Room Air 97 05/21/22 08:00 05/21/22 08:00 05/21/22 08:00 05/21/22 08:00 05/21/22 08:00 05/21/22 08:00 05/19/22 07:23 Period Temp Pulse Resp BP Sys/Romano Pulse Ox O2 Del Method O2 Flow Rate Last 24 Hr 97.1 F-98.7 F 60-82 16-18 138-161/78-95 96-99 Room Air-Room Air Intake and Output 05/20/22 05/21/22 05/21/22 19:59 03:59 11:59 Intake Total 1080 200 Output Total 100 Balance 980 200 Weight 60.781 kg Intake & Output: Intake & Output 05/20/22 05/21/22 05/21/22 19:59 03:59 11:59 Intake Total 1080 200 Output Total 100 Balance 980 200 Weight 60.781 kg Intake: Oral 1080 200 Output: Void Amount 100 Other: Meal Dinner Percent of Meal Consumed 100% Feeding Ability Independent Urine Appearance Clear Urine Color Yellow # Voids 3 Head Head exam: Present atraumatic and normal inspection Eye Eye exam: Present normal appearance ENT ENT exam: Present mucous membranes moist, normal exam and normal external ear exam Neck Neck exam: Present normal inspection Respiratory Respiratory exam: Present normal respiratory exam Cardiovascular Cardiovascular exam: Present normal rate and rhythm GI/Abdominal GI/Abdominal exam: Present normal bowel sounds Back Exam Back exam: Present normal inspection Neurological Exam Neurological exam: Present alert and oriented X3 Skin Skin exam: Present intact and warm OBJ DATA Labs 05/16/22 05:33 Meds: Medications Acetaminophen (Acetaminophen 500 Mg Tablet) 1,000 mg PO Q8H MIKO; Protocol Last Admin: 05/21/22 01:50 Dose: 1,000 mg Atorvastatin Calcium (Atorvastatin 40 Mg Tablet) 40 mg PO QDAY MIKO Last Admin: 05/20/22 08:58 Dose: 40 mg Baclofen (Baclofen 10 Mg Tablet) 10 mg PO TIDP PRN PRN Reason: Muscle Spasticity Last Admin: 05/20/22 17:13 Dose: 10 mg Bisoprolol Fumarate (Bisoprolol 5 Mg Tablet) 2.5 mg PO QDAY [facility] Last Admin: 05/20/22 08:58 Dose: 2.5 mg Celecoxib (Celecoxib 200 Mg Capsule) 200 mg PO BID [facility] Last Admin: 05/20/22 21:05 Dose: 200 mg Clopidogrel Bisulfate (Clopidogrel 75 Mg Tablet) 75 mg PO QAM [facility] Last Admin: 05/20/22 08:57 Dose: 75 mg Docusate Sodium (Docusate Sodium 100 Mg Capsule) 100 mg PO BID [facility] Last Admin: 05/20/22 21:05 Dose: 100 mg Enoxaparin Sodium (Enoxaparin 40 Mg/0.4 Ml Syringe) 40 mg SQ DAILY [facility] Last Admin: 05/20/22 08:57 Dose: 40 mg Hydromorphone HCl (Hydromorphone 0.5 Mg/0.5 Ml Syringe) 0.5 mg IV Q2HP PRN; Protocol PRN Reason: Per Pain Protocol Last Admin: 05/17/22 21:13 Dose: 0.5 mg Ondansetron HCl (Ondansetron 4 Mg/2 Ml Vial) 4 mg IV Q6HP PRN PRN Reason: Nausea And Vomiting Oxycodone HCl (Oxycodone Hcl 5 Mg Tablet) 5 mg PO Q4HP PRN; Protocol PRN Reason: Per Pain Protocol Last Admin: 05/21/22 07:07 Dose: 5 mg Pantoprazole Sodium (Pantoprazole 40 Mg Tablet) 40 mg PO QAMAC [facility] Last Admin: 05/21/22 07:03 Dose: 40 mg Polyethylene Glycol (Polyethylene Glycol 3350 17 Gm Packet) 17 gm PO DAILY [facility] Last Admin: 05/20/22 08:59 Dose: Not Given Senna (Sennosides 1 Tablet) 2 tab PO HS [facility] Last Admin: 05/20/22 21:05 Dose: 2 tab Sodium Chloride (0.9 % Sodium Chloride 10 Ml Syringe) 10 ml IV Q8 [facility] Last Admin: 05/21/22 05:36 Dose: 10 ml Verapamil HCl (Verapamil 120 Mg Tab.Xl.24h) 120 mg PO DAILY [facility] Last Admin: 05/20/22 08:57 Dose: 120 mg A/P Narrative A/P Narrative: Assessment: 77-year-old female with a history of osteoporosis, ischemic stroke stroke in February 2022, history of right and left hip replacements admitted for a right greater trochanteric base fracture. Orthopedic surgery has evaluated the patient and determined that this is a nonoperative fracture. The patient is admitted for pain management, physical therapy, and supportive cares. #Acute fracture through right greater trochanteric base with mild displacement (nonoperative) #Recent right and left hip arthroplasties #Recent ischemic stroke w/ persistent left-sided weakness #Hypertension #Osteoporosis #GERD Plan -Scheduled and as needed analgesics. -Continue home Atorvastatin, bisoprolol, Plavix, verapamil. -PT consult. -Regular diet. -DVT prophylaxis: Lovenox -CODE STATUS: DNR/DNI -Disposition: Currently inpatient MedSurg for analgesics, including IV analgesics. Discharge disposition to be determined. Time Spent With Patient Time: Total time spent is greater than 50% in coordination of care (as documented) at patient's floor/unit and/or counseling patient: Subsequent: Total time with patient: 25 - 34 minutes QUALITY VTE Deep Vein Thrombosis/Pulmonary Embolism Present on Admission: No
[2022-05-21] MEDS: CELECOXIB 200 MG CAPSULE PO SCH (08:06)
[2022-05-21] MEDS: BISOPROLOL 5 MG TABLET PO SCH (08:06)
[2022-05-21] MEDS: ATORVASTATIN 40 MG TABLET PO SCH (08:06)
[2022-05-21] MEDS: ENOXAPARIN 40 MG/0.4 ML SYRINGE SQ SCH (08:07)
[2022-05-21] MEDS: CLOPIDOGREL 75 MG TABLET PO SCH (08:07)
[2022-05-21] MEDS: DOCUSATE SODIUM 100 MG CAPSULE PO SCH (08:07)
[2022-05-21] MEDS: VERAPAMIL 120 MG TAB.XL.24H PO SCH (08:08)
[2022-05-21] MEDS: POLYETHYLENE GLYCOL 3350 17 GM PACKET PO SCH (08:08)
--- NOTE | 2022-05-21 08:58 | Discharge Summary ---
Discharge Provider Provider IMPORTANT FOLLOW-UP INFORMATION FOR PCP: 1. F/u with ortho Patient information: Note initiated : 05/21/22 at 8:57 am Service Date, if different from initiated Date: [] Patient: Denise Hairston 77 y/o F admitted on 05/15/22 for known left femur fracture. Chief Complaint: [] Date of admission: 05/15/22 20:39 Discharge date: 05/21/22 Primary care physician: PCP No Consults: 05/15/22 Consult to Physician [CONS] Stat Comment: Consulting Provider: Sahil Gaming Reason For Exam: Physician to Consult 05/18/22 14:37 Consult to Physician [CONS] Routine Comment: Consulting Provider: [facility] Reason For Exam: Physician to Consult 05/19/22 12:19 Consult to Physician [CONS] Routine Comment: [facility] Consulting Provider: Yohan Rm Reason For Exam: Physician to Consult COURSE Hospital Course Hospital course: Narrative A/P Narrative: Assessment: 77-year-old female with a history of osteoporosis, ischemic stroke stroke in February 2022, history of right and left hip replacements admitted for a right greater trochanteric base fracture. Orthopedic surgery has evaluated the patient and determined that this is a nonoperative fracture. The patient is admitted for pain management, physical therapy, and supportive cares. #Acute fracture through right greater trochanteric base with mild displacement (nonoperative) #Recent right and left hip arthroplasties #Recent ischemic stroke w/ persistent left-sided weakness #Hypertension #Osteoporosis #GERD Plan -Scheduled and as needed analgesics. -Continue home Atorvastatin, bisoprolol, Plavix, verapamil. -PT consult. -Regular diet. -DVT prophylaxis: Lovenox -CODE STATUS: DNR/DNI -Disposition: Currently inpatient MedSurg for analgesics, including IV analges ics. Discharge disposition to be determined. Discharge diagnosis: Acute fracture of the right greater trochanteric base with mild displacemen Time Spent with Patient Time attestation: Total time spent providing and/or coordinating discharge services: Time spent: Greater than 30 minutes EXAM Constitutional Vitals: Temp Pulse Resp BP Pulse Ox O2 Del Method O2 Flow Rate 97.5 F 72 16 161/95 96 Room Air 97 05/21/22 08:00 05/21/22 08:00 05/21/22 08:00 05/21/22 08:00 05/21/22 08:00 05/21/22 08:00 05/19/22 07:23 General appearance: average body habitus Head Head exam: Present atraumatic, normal inspection and normocephalic Eye Eye exam: Present EOMI, normal appearance and PERRL; Absent conjunctival injection ENT ENT exam: Present normal exam; Absent mucous membranes dry Neck Neck exam: Present full ROM; Absent lymphadenopathy Respiratory Respiratory exam: Present normal respiratory exam and CTAB; Absent decreased breath sounds, respiratory distress or wheezes Cardiovascular Cardiovascular exam: Present normal rate and rhythm and RRR; Absent JVD GI/Abdominal GI/Abdominal exam: Present normal bowel sounds and soft; Absent diminished bowel sounds, distended, guarding, mass, rebound or tenderness Neurological Exam Neurological exam: Present alert, CN II-XII intact and oriented X3 Psychiatric Psychiatric exam: Present normal affect and normal mood Skin Skin exam: Present intact and warm; Absent erythema, pallor, petechiae or rash Discharge Plan Patient/Caregiver Discharge Instructions Activity: increase activity as tolerated Prescriptions: Continued esomeprazole magnesium 20 mg capsule,delayed release(DR/EC) 20 mg PO QDAY verapamil 120 MG capsule,ext rel. pellets 24 hr 120 mg PO DAILY atorvastatin 40 mg tablet 40 mg PO QDAY aspirin-dipyridamole 25-200 mg capsule, ER multiphase 12 hr 1 cap PO BID polyethylene glycol 3350 [Miralax] 17 gram powder in packet 17 g PO QDAY bisoprolol fumarate 5 mg tablet 2.5 mg PO QDAY ascorbic acid (vitamin C) [Vitamin C] 500 mg tablet 1,000 mg PO BID Premarin 0.625 mg/gram cream 500 mg vaginal PRN PRN (Reason: Menopausal Symptoms) docusate sodium 100 mg capsule 100 mg PO BID ondansetron 4 mg tablet,disintegrating 4 mg PO Q4HP PRN (Reason: nausea) clopidogrel 75 mg tablet 75 mg PO QAM naproxen sodium [Aleve] 220 mg Tablet 220 mg PO PRN PRN (Reason: Pain) bisacodyl 5 mg Tablet 5 mg PO PRN PRN (Reason: Constipation) pregabalin 50 mg capsule 50 mg PO TIDP PRN (Reason: pain) Muscle Rub 15-10 % cream 1 applic topical PRN PRN (Reason: Pain) Thermotabs 287-180-15 mg Tablet 1 tab PO PRN PRN (Reason: cramps) niacin [Slo-Niacin] 500 mg Tablet Extended Release 500 mg PO QHS hydrocodone-acetaminophen 1 TAB tablet 1 - 2 tab PO Q4H PRN (Reason: Pain) Qty: 20 0RF Discontinued celecoxib 200 mg capsule 200 mg PO BID Follow Up Plan Follow up with: No,PCP [Primary Care Provider] - Patient Disposition: Xfer SNF Prognosis: Fair Rehab Potential: Good I certify that the patient requires SNF services: Yes Overall status at discharge: patient is progressing back to baseline Discharge Orders: Discharge Order (Routine); Ordered 05/21/22 Ordered By: Corey LUX VTE Deep Vein Thrombosis/Pulmonary Embolism Present on Admission: No
== END 2022-05-21 13:07 | DRG 536 ==
LOC: ED 19:04 → MEDSUR 20:39
PROVIDERS: ADMIT Internal Medicine; ATTEND Internal Medicine